=== PATIENT | male | born 1970 ===

== ENCOUNTER 2023-10-23 17:00 | Observation (INO) | payer OTHER, SELFPAY ==
--- NOTE | ~2023-10-23 | XR_ITS ---
EXAMINATION: CHEST 2 VIEWS CLINICAL INFORMATION: chest pain. COMPARISON: No recent pertinent prior studies are available for comparison. TECHNIQUE: PA and lateral views of the chest obtained. FINDINGS: The lungs are well expanded. No focal infiltrate, effusion, edema, or pneumothorax. Cardiac and mediastinal silhouettes are within normal limits for technique. No acute bony abnormality seen XR/XR chest 2V IMPRESSION: No evidence of acute disease
--- NOTE | 2023-10-23 17:03 | ECG_ITS ---
Test Reason : ZAPS IN HEART X 2 Blood Pressure : / mmHG Vent. Rate : 080 BPM Atrial Rate : 080 BPM P-R Int : 134 ms QRS Dur : 084 ms QT Int : 366 ms P-R-T Axes : 023 069 035 degrees QTc Int : 422 ms Normal sinus rhythm T wave abnormality, consider anterior ischemia Abnormal ECG No previous ECGs available Referred By: Jolynn Rodriguez Electronically Signed By:Kun Rosado
--- NOTE | 2023-10-23 17:19 | ED_ITS ---
HPI - General Adult General Chief complaint: Chest Pain Stated complaint: 'zaps' in heart x2 today Time Seen by Provider: 10/23/23 17:37 Source: patient Mode of arrival: ambulatory Limitations: no limitations History of Present Illness HPI narrative: 53 yo male denies PMH denies known cardiac disease here with c/o waking up at 630am with zapping chest pain L side that radiated to the arm. He denies other symptoms states it lasted about 30 minutes. He then went to [employer] around 930 and it happened again. He walks a lot at work and has not noted any pain. He has not had pain for many hours but decided to get it checked out. He has not had any chest pain since he was a heavy drinker back in 2002. He has no hx of CAD, no prior stress test, cardiac catheterization. Both his parents of heart attacks but his mom was in her 70s and his father was in his 90s. He is pain free now though he notes he has a poor appetite today and feels a little lightheaded. no recent ETOH or cocaine use MD complaint: chest pain Onset (ago): hour(s) (630am) Location: chest Radiation: other (L arm) Severity: moderate Quality: other ( zaps ) Pain Consistency: now resolved Relieving factors: none Exacerbating factors: none Associated symptoms: denies other symptoms Treatments prior to arrival: none Related Data Allergies Allergy/AdvReac Type Severity Reaction Status Date / Time loperamide [From Imodium A-D] Allergy Headache Verified 10/23/23 17:22 Review of Systems 2 Review of Systems: Constitutional : No Weight loss, No Fever, No Chills ENT/Mouth : No sore throat, No Rhinorrhea Eyes: No Eye Pain, No Swelling Cardiovascular : pos Chest Pain, no SOB, no Dyspnea on Exertion, No Orthopnea, No Edema, No Palpitations Respiratory : No Cough, No Sputum Gastrointestinal : no Nausea, No Vomiting, No Diarrhea, No abdominal Pain, No Hematochezia, No Melena Genitourinary : No Dysuria, No Urinary Frequency Musculoskeletal : No joint pain, No Myalgias, No Joint Swelling Skin : No Skin Lesions, No rash Neuro : No Weakness, No Numbness, pos Dizziness, No Headache Psych : No Anxiety/Panic, No Depression Heme/Lymph: No Bruising, No Lymphadenopathy Endocrine : No Polyuria, No Polydipsia All other systems reviewed and are negative [facility] Past Medical History Attestation statement: The following information was validated with the patient. Medical History Alcohol abuse, in remission Social History Social History (Updated 10/23/23 @ 17:53 by Soo Perkins DO) Patient Tobacco Use Status: Never used Tobacco Smoked in Last 30 Days: No Use of substances other than those prescribed or required for medical reasons: No Advance Directives: No Advance Directives Information Provided: No Physical Exam ED Vital Signs: Vital Signs - 24 hr 10/23/23 17:20 10/23/23 18:00 Temperature 97.8 F Pulse Rate 80 76 Respiratory Rate 16 16 Blood Pressure 127/71 120/79 Pulse Oximetry 99 96 Oxygen Delivery Method Room Air Room Air BMI result Body Mass Index 30.0 Appearance: Alert. Oriented X3. No acute distress. Eyes: Pupils equal, round and reactive to light. ENT: Pharynx normal. Neck: Normal inspection. Neck supple. CVS: Normal heart rate and rhythm. Pulses normal distal pulses intact and symmetric Respiratory: No respiratory distress. Breath sounds normal. Abdomen: Soft and nontender. Skin: Skin warm and dry. Normal skin color. Normal skin turgor. Extremities: No lower extremity edema. No calf ttp Neuro: Oriented X 3. No motor deficit. No sensory deficit. Course Course Course Narrative: RME performed by Lorena Diane PA-C. Patient is a 53 year old assigned male at presenting to the emergency department with chest pain. Patient states that he was woken up by zaps in his chest / around his heart. Patient states that he is also having left arm pain. Detailed physical exam and review of systems are deferred to the route returner. Labs, imaging, and swabs ordered. Charge nurse aware of patient and attempting to find a room for him. Medical Decision Making Medical Decision Making MDM Narrative: 53 yo male with prior alcohol abuse but has been abstinent for many years no drug use here with c/o zapping L sided chest pain down arm now with c/o some mild dizziness no chest pain no associated symptoms some heaviness in L arm - he has distal pulses intact and has no risk factors for VTE - doubt dissection doubt VTE. He has an abnormal EKG but symptoms are atypical though he has a POS fam hx. Will obtain trop x 1 given last episode of pain was at 930am. Will discuss with cardiology. Differential Diagnosis Differential Diagnoses: The differential diagnosis associated with the presentation includes atypical chest pain, ACS, doubt dissection distal pulses intact no hypoxia no tachycardia no signs of DVT doubt VTE Admission/Observation Consideration of admission/observation: Escalation of care including admission/observation considered admit for further management given abnormal stress test Consult Healthcare Provider Management of the patient was discussed with: Hospitalist and Patient Registration Representative (Alonzo admit for further workup - no heparin) Lab Data MDM Lab Attestation statement: I reviewed the patient's lab results. 10/23/23 17:31 10/23/23 17:31 Labs: Lab Results 10/23/23 Range/Units 17:31 WBC 8.8 (4.8-10.8) X10*3/uL RBC 5.39 (4.60-5.80) X10*6/uL Hgb 15.4 (14.0-18.0) g/dl Hct 45.7 (42.0-52.0) % MCV 84.8 (80.0-98.0) fL MCH 28.6 (27.0-33.0) pg MCHC 33.7 (31.0-36.0) g/dl RDW 12.7 (11.0-16.0) % Plt Count 270 (160-400) X10*3/uL MPV 9.9 (9.4-12.4) fL Immature Gran % (Auto) 0.7 H (0.0-0.4) % Neut % (Auto) 54.8 (45-73) % Lymph % (Auto) 36.2 (20-40) % [place] % (Auto) 6.9 (2-11) % Eos % (Auto) 0.9 (0-4) % Baso % (Auto) 0.5 (0-2) % Lymph # (Auto) 3.2 (1.2-4.9) X10*3/uL [place] # (Auto) 0.6 (0.1-1.2) X10*3/uL Eos # (Auto) 0.1 (0.0-0.4) X10*3/uL Baso # (Auto) 0.0 (0.0-0.2) X10*3/uL Abs Immat Gran (auto) 0.06 H (0.00-0.03) X10*3/uL Absolute Neuts (auto) 4.8 (2.0-8.3) x10*3/uL Absolute Nucleated RBC 0.000 (0.0-0.012) X10*3/uL Nucleated RBC % (auto) 0.0 (0.0-0.2) /100WBC PT 12.2 (11.1-13.3) SEC INR 1.0 (0.9-1.1) APTT 34.6 (26.0-36.4) SEC Sodium 141 (135-145) mmol/L Potassium 4.0 (3.3-5.1) mmol/L Chloride 104 (96-108) mmol/L Carbon Dioxide 27 (22-29) mmol/L Anion Gap 14 (12-20) BUN 14 (9-16) mg/dL Creatinine 0.95 (0.5-1.4) mg/dL Estim Creat Clear Calc 90.5 Estimated GFR > 60 Random Glucose 90 (60-115) mg/dL Calcium 9.6 (8.4-10.2) mg/dL Magnesium 1.9 (1.6-2.6) mg/dL Total Bilirubin 0.5 (0.0-1.0) mg/dL AST 23 (5-37) U/L ALT 24 (0-40) U/L Alkaline Phosphatase 78 (39-117) U/L Troponin I High Sens < 2.7 (<3.5-35.0) ng/L B-Natriuretic Peptide 11 (<100) pg/mL Total Protein 8.1 H (6.5-8.0) g/dL Albumin 4.5 (3.5-5.0) g/dL COVID-19 ([facility]) Negative (Negative) COVID-19 Clin Com See Note Influenza Type A ([facility]I) Negative (Negative) Influenza Type B ([facility]I) Negative (Negative) Influenza A & B Note See Note Independent Interpretation I performed an independent interpretation of an: EKG and Plain X-Ray (normal ) Interpretation: Rate: 80 Rhythm: NSR [place]: normal Normal P waves. Normal CECILY. Normal QRS complex. ST T wave : biphasic T waves in V3-V4, no MICHAEL has some q waves small in II and III qTC: 422 prior studies: no prior The study has been interpreted contemporaneously by me. EKG #2 Rate: 77 Rhythm: NSR [place]: normal Normal P waves. Normal CECILY. Normal QRS complex. ST T wave : no MICHAEL, biphasic t waves V3-V4, q waves II and III qTC: 425 prior studies: no prior no sig change The study has been interpreted contemporaneously by me. . Radiology Impression Discussion of test interpretation with radiology: I have reviewed the radiologist's reading. Discharge Plan Discharge Clinical Impression: Atypical chest pain, Abnormal EKG Patient Disposition: Admitted As Inpatient
[2023-10-23 17:20] VITALS: BP 127/71; PULSE 80; RESP 16; TEMP 36.6; O2SAT 99
[2023-10-23 17:37] LABS: MANUAL DIFF FLAG NO
[2023-10-23 17:39] LABS: Basophils Percent Auto 0.5 % (0-2); Eosinophils Absolute Auto 0.1 X10*3/uL (0.0-0.4); Eosinophils Percent Auto 0.9 % (0-4); Hematocrit 45.7 % (42.0-52.0); Hemoglobin 15.4 g/dl (14.0-18.0); Imm Gran Abs Auto 0.06 X10*3/uL (0.00-0.03); Imm Gran Pct Auto 0.7 % (0.0-0.4); Lymphocytes Absolute Auto 3.2 X10*3/uL (1.2-4.9); Lymphocytes Percent Auto 36.2 % (20-40); Mean Corpuscular HGB Conc 33.7 g/dl (31.0-36.0); Mean Corpuscular Hemoglobin 28.6 pg (27.0-33.0); Mean Corpuscular Volume 84.8 fL (80.0-98.0); Mean Platelet Volume 9.9 fL (9.4-12.4); Monocytes Absolute Auto 0.6 X10*3/uL (0.1-1.2); Monocytes Percent Auto 6.9 % (2-11); Neutrophils Absolute Auto 4.8 x10*3/uL (2.0-8.3); Neutrophils Percent Auto 54.8 % (45-73); Platelet Count 270 X10*3/uL (160-400); Red Blood Count 5.39 X10*6/uL (4.60-5.80); Red Cell Distribution Width 12.7 % (11.0-16.0); White Blood Count 8.8 X10*3/uL (4.8-10.8)
--- NOTE | 2023-10-23 17:42 | ECG_ITS ---
Test Reason : pain Blood Pressure : / mmHG Vent. Rate : 077 BPM Atrial Rate : 077 BPM P-R Int : 140 ms QRS Dur : 088 ms QT Int : 376 ms P-R-T Axes : 025 067 039 degrees QTc Int : 425 ms Normal sinus rhythm Nonspecific T wave abnormality Abnormal ECG When compared with ECG of 23-OCT-2023 17:12, No significant change was found Referred By: Jolynn Rodriguez Electronically Signed By:Kun Rosado
[2023-10-23 17:53] LABS: Alanine Aminotransferase 24 U/L (0-40); Albumin Level 4.5 g/dL (3.5-5.0); Alkaline Phosphatase 78 U/L (39-117); Anion Gap 14 (12-20); Aspartate Amino Transferase 23 U/L (5-37); Bilirubin Total 0.5 mg/dL (0.0-1.0); Blood Urea Nitrogen 14 mg/dL (9-16); Calcium 9.6 mg/dL (8.4-10.2); Carbon Dioxide 27 mmol/L (22-29); Chloride 104 mmol/L (96-108); Creatinine Clr Calc Pharmacy 90.5; Estimated Glomerular Filt Rate > 60; Glucose Random 90 mg/dL (60-115); Magnesium 1.9 mg/dL (1.6-2.6); Sodium 141 mmol/L (135-145); Total Protein 8.1 g/dL (6.5-8.0)
[2023-10-23 17:55] LABS: Prothrombin Time 12.2 SEC (11.1-13.3)
[2023-10-23 17:58] LABS: Partial Thromboplastin Time 34.6 SEC (26.0-36.4)
[2023-10-23 17:59] LABS: B Type Natriuretic Peptide 11 pg/mL (<100)
[2023-10-23 18:00] VITALS: BP 120/79; PULSE 74; PULSE 76; RESP 16; O2SAT 96
[2023-10-23 18:02] LABS: Troponin-I High Sensitivity < 2.7 ng/L (<3.5-35.0)
[2023-10-23 18:13] LABS: COVID-19 Test Negative (Negative); IDNOW Serial# 08D9AD1C
[2023-10-23 18:14] LABS: IDNOW Serial# 9DB6401D; Influenza A Negative (Negative); Influenza B2 Negative (Negative)
[2023-10-23] MEDS: Aspirin 81 MG TAB.CHEW 324 MG PO (19:25)
--- NOTE | 2023-10-23 19:33 | PC.NURSE ---
Patient is alert and oriented x3, VSS. Patient reports left sided chest pain that radiate s to left shoulder/arm/hand 02/08 at present, content developer in place, HR 79, NSR. Patient medicated with Aspirin 324 mg PO per NOV. Patient ambulates independently with a steady gait. Skin is dry, warm, intact. Call marquez within patient's reach.
[2023-10-23 19:36] LABS: Troponin-I High Sensitivity < 2.7 ng/L (<3.5-35.0)
[2023-10-23 20:13] LABS: Appearance Urine Clear; Color Urine Yellow; Glucose Urine UA Negative (Negative); Leukocyte Esterase Urine Negative (Negative); Nitrite Urine Negative (Negative); PH 6.5 (5.0-9.0); Specific Gravity - Urine 1.015 (1.005-1.025); Urine Blood Negative (Negative); Urine Ketones Negative (Negative); Urine Protein Negative (Neg-Trace)
[2023-10-23 20:18] LABS: Amphetamine Screen Urine Not Detected (Not Detect); Barbiturates, Urine Not Detected (Not Detect); Benzodiazepines Screen Urine Not Detected (Not Detect); Cannabinoid Screen Urine Not Detected (Not Detect); Cocaine Screen Urine Not Detected (Not Detect); Fentanyl, urine Not Detected (Not Detect); Opiate Screen Urine Not Detected (Not Detect); Phencyclidine Screen Urine Not Detected (Not Detect)
--- NOTE | 2023-10-23 20:18 | PHA.MEDREC ---
Pharmacy Consult ? Medication Reconciliation Pharmacy has completed the medication reconciliation.Patient is currently not on any medications. Maria Victoria roldan CPhT
--- NOTE | 2023-10-23 20:53 | P.HPHOSP_ITS ---
History of Present Illness Date of Service: 10/23/23 Attending physician on admission: Jolynn Rodriguez Chief Complaint: Chest pain Kedar Ramirez is a 53 years old man with no significant past medical history presented to the emergency department complaining of few episodes of chest pain. The 1st episode occurred today around 06:30 after he woke up. He localized the pain in the mid chest and described it as a sharp/needles sensation. It radiates to the left arm and said that his left arm hurts when he touches it. He denied any trauma to left arm or been lifting any heavy objects. This pain lasted for several minutes. Later in the morning he had another similar episode associated with lightheadedness. He did not take any medication at home. Denied any headache, loss of consciousness, palpitations, shortness of breath, cough, sweating, nausea or vomiting. He does not have history of coronary artery disease, hypertension, diabetes mellitus or hyperlipidemia. He does not take aspirin daily. He stated that he is dad of advanced age (90s) of heart problems. His mom of cirrhosis. He mentioned that in 2002 he experienced chest pain and underwent a stress test and was told it was normal. He denies tobacco smoking, alcohol abuse or illicit drug use. In the ED, found to have normal vital signs. Blood workup included CBC and CMP are unremarkable. Troponin is negative x2. Viral testing for COVID-19 the influenza is negative. Urine drug test is negative. CXR is negative. ECG showed Q-waves in lead II and III. ED Tx: Aspirin 325 mg p.o. x1. Review of Systems 2 Review of Systems: All 12 systems were reviewed and normal except as noted in HPI. [facility] Medical History Alcohol abuse, in remission Social History (Updated 10/23/23 @ 17:53 by Soo Perkins DO) Patient Tobacco Use Status: Never used Tobacco Smoked in Last 30 Days: No Use of substances other than those prescribed or required for medical reasons: No Advance Directives: No Advance Directives Information Provided: No Meds Allergies Allergy/AdvReac Type Severity Reaction Status Date / Time loperamide [From Imodium A-D] Allergy Headache Verified 10/23/23 17:22 Active Medications: Current Medications Acetaminophen (Acetaminophen 325 Mg Tablet) 650 mg PO Q6H PRN PRN Reason: Pain, Mild (Pain Scale 1-3) Aspirin (Aspirin 81 Mg Tab.Chew) 81 mg PO DAILY CHRISTIAN Sodium Chloride (0.9 % Sodium Chloride Flush 3 Ml Syringe) 3 ml IVFLUSH QSHIFT CHRISTIAN Home Medications Medication Instructions Recorded Confirmed Last Taken Type No Known Home Meds 10/23/23 10/23/23 Unknown History Physical Exam 2 Vital Signs and Narrative: Vital Signs: Last Vital Signs Temp 97.8 F 10/23/23 17:20 Pulse 76 10/23/23 18:00 Resp 16 10/23/23 18:00 BP 120/79 10/23/23 18:00 Pulse Ox 96 10/23/23 18:00 O2 Del Method Room Air 10/23/23 18:00 BMI result Body Mass Index 30.0 Constitutional - Awake and Alert, No apparent distress HEENT - normocephalic atraumatic. Cardiovascular - S1S2, RRR, No murmur. Respiratory - Normal lung expansion, Normal respiratory effort, No respiratory distress, CTA bilaterally Gastrointestinal - NT / ND; +BS; No rebound or guarding Extremities - no calf tenderness bilaterally, no swelling Musculoskeletal - Normal inspection, normal ROM. Left arm tenderness. Skin - Warm/Dry Neurological - Alert & oriented x3, Psychological - Appropriate affect. Results Labs 10/23/23 17:31 10/23/23 17:31 Labs: Laboratory Results - last 24 hr 10/23/23 10/23/23 17:31 20:02 MCV 84.8 MCH 28.6 MCHC 33.7 RDW 12.7 Plt Count 270 MPV 9.9 Immature Gran % (Auto) 0.7 H Neut % (Auto) 54.8 Lymph % (Auto) 36.2 [place] % (Auto) 6.9 Eos % (Auto) 0.9 Baso % (Auto) 0.5 Lymph # (Auto) 3.2 [place] # (Auto) 0.6 Eos # (Auto) 0.1 Baso # (Auto) 0.0 Abs Immat Gran (auto) 0.06 H Absolute Neuts (auto) 4.8 Absolute Nucleated RBC 0.000 Nucleated RBC % (auto) 0.0 PT 12.2 INR 1.0 APTT 34.6 Anion Gap 14 Estim Creat Clear Calc 90.5 Estimated GFR > 60 Random Glucose 90 Calcium 9.6 Magnesium 1.9 Total Bilirubin 0.5 AST 23 ALT 24 Alkaline Phosphatase 78 B-Natriuretic Peptide 11 Total Protein 8.1 H Albumin 4.5 Urine Color Yellow Urine Appearance Clear Urine pH 6.5 Ur Specific [place] 1.015 Urine Protein Negative Urine Glucose (UA) Negative Urine Ketones Negative Urine Blood Negative Urine Nitrite Negative Ur Leukocyte Esterase Negative Urine Opiates Screen Not Detected Urine Fentanyl Screen Not Detected Ur Barbiturates Screen Not Detected Ur Phencyclidine Scrn Not Detected Ur Amphetamines Screen Not Detected U Benzodiazepines Scrn Not Detected Urine Cocaine Screen Not Detected U Marijuana (THC) Screen Not Detected COVID-19 ([facility]) Negative COVID-19 Clin Com See Note Influenza Type A ([facility]I) Negative Influenza Type B ([facility]I) Negative Influenza A & B Note See Note Imaging Radiologist's Impressions: Impressions Chest X-Ray 10/23/23 17:34 IMPRESSION: No evidence of acute disease Assessment and Plan (1) Atypical chest pain: Status: Acute (2) Abnormal EKG: Status: Acute Plan Kedar Ramirez is a 53 years old man presents with: * Chest pain. Keep in observation under hospitalist service. Telemetry. Trend troponin. Check lipid panel and hemoglobin A1c. Obtain TTE and stress test. Aspirin 81 mg p.o. daily. Cardiology consult for further recommendations. * Left arm tenderness. Musculoskeletal pain? Related to above? Motrin as needed. DVT prophylaxis: SCDs. Code status: Full. Quality Stroke Does the patient have a stroke diagnosis?: No VTE Prior VTE?: No VTE Risk Level:: Medical - low VTE Device Contraindication: N/A - Device Ordered VTE Drug Contraindication: Treatment Not Indicated
[2023-10-23 22:23] VITALS: BP 104/70; PULSE 68; RESP 12; TEMP 36.7; O2SAT 96
[2023-10-23] MEDS: 0.9 % Sodium Chloride Flush 3 ML SYRINGE IVFLUSH (23:24)
[2023-10-24 00:11] VITALS: BP 111/69; PULSE 67; RESP 20; TEMP 36.5; O2SAT 95
[2023-10-24 01:52] LABS: Troponin-I High Sensitivity < 2.7 ng/L (<3.5-35.0)
[2023-10-24 02:20] VITALS: BP 113/77; PULSE 59; RESP 18; TEMP 36.5; O2SAT 97
[2023-10-24 03:46] VITALS: BP 117/73; PULSE 68; RESP 20; TEMP 36.4; O2SAT 97
--- NOTE | 2023-10-24 07:00 | CA_ITS ---
Transthoracic Echocardiogram Patient (Last, First, Middle): Kedar Ramirez, Gender: Male Date of : 1970 Age: 53 Procedure Date: 10/24/2023 Procedure Type: [place]ansthoracic [place] [facility] [place]: 165.1 cm Weight: 81.65 kg BSA: 1.89 m2 Heart Rate: bpm BP: 117 / 73 mmHg Ballroom Dance Instructor: SB Referring MD: Jolynn Rodriguez MD Symptoms: Chest pain, EKG changes Study Quality: Good ECG Rhythm: Sinus Conclusions: - Normal left ventricular size and systolic function. There is mildly increased left ventricular wall thickness. The visually estimated ejection fraction is between 60-65%. - There is no evidence of regional wall motion abnormalities. - E/E prime ratio is between 8 and 15 consistent with indeterminate filling pressures. - Normal right ventricular cavity size and systolic function. Findings Left Ventricle Normal left ventricular size and systolic function. There is mildly increased left ventricular wall thickness. The visually estimated ejection fraction is between 60-65%. There is no evidence of regional wall motion abnormalities. Abnormal diastolic function is noted. Spectral Doppler is indicative of a pseudonormal filling pattern. E/E prime ratio is between 8 and 15 consistent with indeterminate filling pressures. Right Ventricle Normal right ventricular cavity size and systolic function. Atria The left atrium is normal in size. Aortic Valve Normal aortic valve structure and function. There is no aortic valve stenosis. There is no aortic valve regurgitation. Mitral Valve The mitral valve appears normal. There is no mitral valve regurgitation. There is no mitral valve stenosis. Pulmonic Valve Normal pulmonic valve structure and function. There is no pulmonic valve regurgitation. Tricuspid Valve Normal tricuspid valve structure and function. There is trace tricuspid valve regurgitation. Normal right atrial pressure. There is no evidence of pulmonary hypertension. Great Vessels All visible segments of the aorta are normal in size. The visualized portions of the pulmonary artery and branches are normal. Venous The inferior vena cava is normal in size and collapses greater than 50% with inspiration. Pericardium/Pleural There is no evidence of pericardial effusion. Prior Study Comparison No prior study available for comparison. Measurements 2D Linear Measurements IVSd: 1.32 0.6-0.9/0.6-1.0 cm LVIDd: 4.52 3.9-5.3/4.2-5.9 cm LVIDd Index: 2.39 2.4-3.2/2.2-3.1 cm/m2 LVIDs: 2.37 2.0-3.6 cm LVPWd: 1.07 0.7-1.1 cm Ao Root: 3.50 2.1-3.5 cm LA Diam: 3.40 2.7-3.8/3.0-4.0 cm LAIDs Index: 1.80 1.5-2.3 cm/m2 LV Mass: 247.10 67-162/88-224 g LV Mass Index: 130.74 43-95/49-115 g/m2 LVOT Diam: 2.10 3.0+(-)1.3 cm 2D Systolic Function EF 4C: 69.50 >55% EF 2C: 65.30 >55% EF BiP: 69.20 >55% Mitral Valve MV Pk E: 0.85 MV PK A: 0.63 MV Decel Time: 201.00 E/A: 1.30 E'Lateral: 7.94 E'Medial: 6.42 E/E' Med: 13.30 E/E' Lat: 10.70 PHT: 59.00 MVA PHT: 3.73 Decel Larue: 4.24 Aortic Valve AoV Pk Jet: 1.32 AoV Mn Ejt: 0.88 AoV VTI: 0.27 AoV Pk Grad: 7.00 Aov Mn Grad: 4.00 CAR Cont.VTI: 2.94 LVOT LVOT Pk Jet: 1.08 LVOT Mn Jet: 0.69 LVOT VTI: 0.23 LVOT Pk Grad: 5.00 LVOT Mn Grad: 2.00 LVOT Diam: 2.10 LVOT Area: 3.46 Diastolic Function MV Pk E: 0.85 MV Pk A: 0.63 E/A: 1.30 E'Medial: 6.42 E/E' Med: 13.30 E' Laterial: 7.94 E/E' Lat: 10.70 Right Ventricle TAPSE (mm): 20.00 TVS' Jet: 11.00 Tricuspid Valve TR Pk Jet: 2.00 TR Pk Grad: 16.00 RA Press: 3.00 RVSP: 19.00 Great Vessels Aorta Ao Root-2D: 3.50 2.0-3.7 cm Ao Asc: 3.00 2.1-3.4 cm Ao Arch: 2.60 Pulmonary Veins Pulm Vein S/D 1.40 Pulmonary Valve PV Pk Jet: 0.94 Peak PV Grad: 4.00 Updated in Other Vendor System with Status of Final Kun Rosado MD electronically signed on 10/24/2023 10:31:35 AM with status of Final
[2023-10-24 07:13] LABS: Estimated Average Glucose 108 mg/dL; Hemoglobin A1c % 5.4 % (<6.0)
[2023-10-24 07:24] LABS: Alanine Aminotransferase 24 U/L (0-40); Alkaline Phosphatase 72 U/L (39-117); Anion Gap 11 (12-20); Aspartate Amino Transferase 22 U/L (5-37); Bilirubin Total 0.5 mg/dL (0.0-1.0); Blood Urea Nitrogen 16 mg/dL (9-16); Calcium 9.3 mg/dL (8.4-10.2); Carbon Dioxide 28 mmol/L (22-29); Chloride 104 mmol/L (96-108); Cholesterol 241 mg/dL (<200); Estimated Glomerular Filt Rate > 60; Glucose Random 99 mg/dL (60-115); HDL Cholesterol 41 mg/dL (>40); LDL Cholesterol Calculated 182 mg/dL (<100); Potassium 4.1 mmol/L (3.3-5.1); Sodium 139 mmol/L (135-145); Total Protein 7.3 g/dL (6.5-8.0); Triglycerides 93 mg/dL (<150)
[2023-10-24 07:27] LABS: Troponin-I High Sensitivity 2.8 ng/L (<3.5-35.0)
[2023-10-24 07:37] VITALS: BP 115/82; PULSE 60; RESP 18; TEMP 36.1; O2SAT 96
--- NOTE | 2023-10-24 09:00 | MHC.CM.PN ---
CM ATTEMPTED TO MEET W/PT HOWEVER PT W/CARDIOLOGY, CM TO REVISIT.
[2023-10-24] MEDS: Aspirin 81 MG TAB.CHEW PO (09:01)
[2023-10-24] MEDS: 0.9 % Sodium Chloride Flush 3 ML SYRINGE IVFLUSH (09:02)
--- NOTE | 2023-10-24 10:41 | P.CONCA_ITS ---
History of Present Illness History of Present Illness Date of Service: 10/24/23 Requesting physician: Nicci Lobo Chief complaint: Chest pain Narrative: 83-year-old gentleman presenting for chest pain. He woke up yesterday with stabbing sensation on the left side of his chest. This lasted for 1 minute and resolved. Later in the day he came had some stabbing sensation and some burning in the area. He said again the episode for us for 1 minute but then he had another episode and he became very anxious and decided come to the emergency department. In the ER he had workup done including troponins and his high sensitive troponin levels were less than 2.7 and he was checked 3 times. His EKG showed some biphasic T-waves in the precordial leads. These changes were not dynamic as the repeat EKG showed very similar changes. There is no old EKG to compare with. He was admitted for further assessment this morning he is denying any chest discomfort. Blood pressure has been stable. He got an echocardiogram performed which shows normal LV function with mild left ventricular hypertrophy. There is no regional wall motion abnormality or any evidence of pericardial effusion. [facility] Past Medical History Medical History Alcohol abuse, in remission Social History Social History (Updated 10/23/23 @ 17:53 by Soo Perkins DO) Household Members: Family Housing: Apartment Do you presently have visiting nurse or other home services: No Patient Tobacco Use Status: Never used Tobacco Meds Allergies Allergy/AdvReac Type Severity Reaction Status Date / Time loperamide [From Imodium A-D] Allergy Headache Verified 10/23/23 17:22 Active Medications: Current Medications Acetaminophen (Acetaminophen 325 Mg Tablet) 650 mg PO Q6H PRN PRN Reason: Pain, Mild (Pain Scale 1-3) Aspirin (Aspirin 81 Mg Tab.Chew) 81 mg PO DAILY REPLACED BY [facility] Last Admin: 10/24/23 09:01 Dose: 81 mg Ibuprofen (Ibuprofen 200 Mg Tablet) 200 mg PO Q4H PRN PRN Reason: Pain, Mild (Pain Scale 1-3) Sodium Chloride (0.9 % Sodium Chloride Flush 3 Ml Syringe) 3 ml IVFLUSH QSHIFT REPLACED BY [facility] Last Admin: 10/24/23 09:02 Dose: 3 ml Home Medications Medication Instructions Recorded Confirmed Last Taken Type No Known Home Meds 10/23/23 10/23/23 Unknown History Physical Exam 2 Vital Signs: Vital Signs: Last Vital Signs Temp 96.9 F 10/24/23 07:37 Pulse 60 10/24/23 07:37 Resp 18 10/24/23 07:37 BP 115/82 10/24/23 07:37 Pulse Ox 96 10/24/23 07:37 O2 Del Method Room Air 10/24/23 07:37 BMI result Body Mass Index 30.0 GENERAL APPEARANCE: in no acute distress, pleasant. NECK: no carotid bruit, no jugular venous distention. SKIN: no suspicious lesions, warm and dry. HEART: no murmurs, regular rate and rhythm. LUNGS: clear to auscultation bilaterally. ABDOMEN: soft, nontender. EXTREMITIES: no edema. PERIPHERAL PULSES: equal. NEUROLOGIC: No gross deficits, AAO X 3 Objective Labs and Meds 10/23/23 17:31 10/24/23 06:33 Lab results: Laboratory Results - last 24 hr 10/23/23 10/23/23 10/23/23 17:31 19:07 20:02 WBC 8.8 RBC 5.39 Hgb 15.4 Hct 45.7 MCV 84.8 MCH 28.6 MCHC 33.7 RDW 12.7 Plt Count 270 MPV 9.9 Immature Gran % (Auto) 0.7 H Neut % (Auto) 54.8 Lymph % (Auto) 36.2 Grady % (Auto) 6.9 Eos % (Auto) 0.9 Baso % (Auto) 0.5 Lymph # (Auto) 3.2 Grady # (Auto) 0.6 Eos # (Auto) 0.1 Baso # (Auto) 0.0 Abs Immat Gran (auto) 0.06 H Absolute Neuts (auto) 4.8 Absolute Nucleated RBC 0.000 Nucleated RBC % (auto) 0.0 PT 12.2 INR 1.0 APTT 34.6 Sodium 141 Potassium 4.0 Chloride 104 Carbon Dioxide 27 Anion Gap 14 BUN 14 Creatinine 0.95 Estim Creat Clear Calc 90.5 Estimated GFR > 60 Random Glucose 90 Estimat Average Glucose Hemoglobin A1c % Calcium 9.6 Magnesium 1.9 Total Bilirubin 0.5 AST 23 ALT 24 Alkaline Phosphatase 78 Troponin I High Sens < 2.7 < 2.7 B-Natriuretic Peptide 11 Total Protein 8.1 H Albumin 4.5 Triglycerides Cholesterol LDL Cholesterol, Calc HDL Cholesterol Urine Color Yellow Urine Appearance Clear Urine pH 6.5 Ur Specific [place] 1.015 Urine Protein Negative Urine Glucose (UA) Negative Urine Ketones Negative Urine Blood Negative Urine Nitrite Negative Ur Leukocyte Esterase Negative Urine Opiates Screen Not Detected Urine Fentanyl Screen Not Detected Ur Barbiturates Screen Not Detected Ur Phencyclidine Scrn Not Detected Ur Amphetamines Screen Not Detected U Benzodiazepines Scrn Not Detected Urine Cocaine Screen Not Detected U Marijuana (THC) Screen Not Detected COVID-19 (WARD) Negative COVID-19 Clin Com See Note Influenza Type A (MERI) Negative Influenza Type B (MERI) Negative Influenza A & B Note See Note 10/24/23 10/24/23 01:25 06:33 WBC RBC Hgb Hct MCV MCH MCHC RDW Plt Count MPV Immature Gran % (Auto) Neut % (Auto) Lymph % (Auto) Grady % (Auto) Eos % (Auto) Baso % (Auto) Lymph # (Auto) Grady # (Auto) Eos # (Auto) Baso # (Auto) Abs Immat Gran (auto) Absolute Neuts (auto) Absolute Nucleated RBC Nucleated RBC % (auto) PT INR APTT Sodium 139 Potassium 4.1 Chloride 104 Carbon Dioxide 28 Anion Gap 11 L BUN 16 Creatinine 0.86 Estim Creat Clear Calc 100.0 Estimated GFR > 60 Random Glucose 99 Estimat Average Glucose 108 Hemoglobin A1c % 5.4 Calcium 9.3 Magnesium Total Bilirubin 0.5 AST 22 ALT 24 Alkaline Phosphatase 72 Troponin I High Sens < 2.7 2.8 B-Natriuretic Peptide Total Protein 7.3 Albumin 4.0 Triglycerides 93 Cholesterol 241 H LDL Cholesterol, Calc 182 H HDL Cholesterol 41 Urine Color Urine Appearance Urine pH Ur Specific [place] Urine Protein Urine Glucose (UA) Urine Ketones Urine Blood Urine Nitrite Ur Leukocyte Esterase Urine Opiates Screen Urine Fentanyl Screen Ur Barbiturates Screen Ur Phencyclidine Scrn Ur Amphetamines Screen U Benzodiazepines Scrn Urine Cocaine Screen U Marijuana (THC) Screen COVID-19 (WARD) COVID-19 Clin Com Influenza Type A (MERI) Influenza Type B (MERI) Influenza A & B Note Imaging Radiologist's impression: Impressions Chest X-Ray 10/23/23 17:34 IMPRESSION: No evidence of acute disease Assessment and Plan (1) Abnormal EKG: Status: Acute (2) Atypical chest pain: Status: Acute Plan Pleasant 53 year gentleman presenting for chest discomfort. The chest pain is quite atypical. His EKG is abnormal with some biphasic T-waves in the precordial leads. These changes are not dynamic and did not change on repeat EKG. We will repeat it again this morning. Echocardiography is not showing any wall motion abnormalities. High sensitive troponin levels are negative. I will arrange a stress echocardiogram for him today. If stress is normal will discharge him back home. His LDL cholesterol is less 182 currently. His total cholesterol is 241. He should be on Lipitor 40 mg once a day. We will give further recommendation as the stress echocardiogram is performed. Thank you for allowing me to participate in the care of your patient. Please feel free to contact me if you have any questions. Procedures Date of Service Date of Service: 10/24/23
[2023-10-24 11:05] VITALS: BP 121/75; PULSE 66; RESP 18; TEMP 36.3; O2SAT 97
--- NOTE | 2023-10-24 11:30 | CA_ITS ---
Acquisition Time: 2023-10-24 11:26:36 Total Exercise Time: 00:10:18 Test Indications: Chest Pain Medications: ASA Protocol: KASSANDRA Max HR: 169 BPM 100% of Pred: 169 BPM Max BP: 134/070 mmHG Max Work Load: 12.2 METS Exercise stress test exercise 10 min 18 sec of Kassandra protocol achieving 100% MPHR, with mild SOB, no chest discomfort, without arrhythmias, with normotensive repsonse to exercise, withV3-V6 horizontal depression, scooping 2,3 avF. Echo images obtained by tech at rest and immediately post peak exercise. Definity contrast used, Test reviewed with Dr Rosado. Referred By: Fela Pike Overread By: Fela Pike
[2023-10-24 15:31] VITALS: BP 111/66; PULSE 71; RESP 18; TEMP 36.6; O2SAT 95
--- NOTE | 2023-10-24 16:44 | HO.PM.IMPN ---
Subjective Subjective Date of Service: 10/24/23 Physical Exam Vital Signs: Vital Signs: Last Vital Signs Temp 97.8 F 10/24/23 15:31 Pulse 71 10/24/23 15:31 Resp 18 10/24/23 15:31 BP 111/66 10/24/23 15:31 Pulse Ox 95 10/24/23 15:31 O2 Del Method Room Air 10/24/23 15:31 BMI result Body Mass Index 30.0 Objective Data Active Medications Acetaminophen (Acetaminophen 325 Mg Tablet) 650 mg PO Q6H PRN PRN Reason: Pain, Mild (Pain Scale 1-3) Aspirin (Aspirin 81 Mg Tab.Chew) 81 mg PO DAILY [facility] Last Admin: 10/24/23 09:01 Dose: 81 mg Documented By: WINNIE Ibuprofen (Ibuprofen 200 Mg Tablet) 200 mg PO Q4H PRN PRN Reason: Pain, Mild (Pain Scale 1-3) Sodium Chloride (0.9 % Sodium Chloride Flush 3 Ml Syringe) 3 ml IVFLUSH QSHIFT [facility] Last Admin: 10/24/23 09:02 Dose: 3 ml Documented By: WINNIE Labs 10/23/23 17:31 10/24/23 06:33 Labs: Laboratory Results - last 24 hr 10/23/23 10/23/23 10/24/23 17:31 20:02 06:33 MCV 84.8 MCH 28.6 MCHC 33.7 RDW 12.7 Plt Count 270 MPV 9.9 Immature Gran % (Auto) 0.7 H Neut % (Auto) 54.8 Lymph % (Auto) 36.2 Russell % (Auto) 6.9 Eos % (Auto) 0.9 Baso % (Auto) 0.5 Lymph # (Auto) 3.2 Russell # (Auto) 0.6 Eos # (Auto) 0.1 Baso # (Auto) 0.0 Abs Immat Gran (auto) 0.06 H Absolute Neuts (auto) 4.8 Absolute Nucleated RBC 0.000 Nucleated RBC % (auto) 0.0 PT 12.2 INR 1.0 APTT 34.6 Anion Gap 14 11 L Estim Creat Clear Calc 90.5 100.0 Estimated GFR > 60 > 60 Random Glucose 90 99 Estimat Average Glucose 108 Hemoglobin A1c % 5.4 Calcium 9.6 9.3 Magnesium 1.9 Total Bilirubin 0.5 0.5 AST 23 22 ALT 24 24 Alkaline Phosphatase 78 72 B-Natriuretic Peptide 11 Total Protein 8.1 H 7.3 Albumin 4.5 4.0 Triglycerides 93 Cholesterol 241 H LDL Cholesterol, Calc 182 H HDL Cholesterol 41 Urine Color Yellow Urine Appearance Clear Urine pH 6.5 Ur Specific [place] 1.015 Urine Protein Negative Urine Glucose (UA) Negative Urine Ketones Negative Urine Blood Negative Urine Nitrite Negative Ur Leukocyte Esterase Negative Urine Opiates Screen Not Detected Urine Fentanyl Screen Not Detected Ur Barbiturates Screen Not Detected Ur Phencyclidine Scrn Not Detected Ur Amphetamines Screen Not Detected U Benzodiazepines Scrn Not Detected Urine Cocaine Screen Not Detected U Marijuana (THC) Screen Not Detected COVID-19 (WARD) Negative COVID-19 Clin Com See Note Influenza Type A (MERI) Negative Influenza Type B (MERI) Negative Influenza A & B Note See Note Quality Stroke Does the patient have a stroke diagnosis?: No VTE Prior VTE?: No VTE Risk Level:: Medical - low VTE Device Contraindication: N/A - Device Ordered VTE Drug Contraindication: Treatment Not Indicated
--- NOTE | 2023-10-24 16:55 | PM.DS ---
DS: Providers Provider Date of Service: 10/24/23 Date of admission: 10/23/23 20:10 Date of discharge: 10/24/23 Primary care physician: Dwain Lagunas MD Consults: 10/23/23 19:20 Consult to Cardiology Stat Consulting Provider: [facility] [place] [facility] Reason for consultation: abnormal ECG, chest pain Has provider been notified: Yes 10/23/23 20:15 Consult to Cardiology Routine Consulting Provider: [facility] [place] [facility] Reason for consultation: Chest pain Has provider been notified: Yes DS: Diagnosis Discharge Diagnosis (1) Abnormal EKG: Status: Acute (2) Atypical chest pain: Status: Acute DS: Summary Hospital Course Hospital Course: 53 years old man with no significant past medical history presented to the emergency department complaining of few episodes of chest pain. The 1st episode occurred today around 06:30 after he woke up. He localized the pain in the mid chest and described it as a sharp/needles sensation. It radiates to the left arm and said that his left arm hurts when he touches it. He denied any trauma to left arm or been lifting any heavy objects. This pain lasted for several minutes. Later in the morning he had another similar episode associated with lightheadedness. He did not take any medication at home. Denied any headache, loss of consciousness, palpitations, shortness of breath, cough, sweating, nausea or vomiting. He does not have history of coronary artery disease, hypertension, diabetes mellitus or hyperlipidemia. He does not take aspirin daily. He stated that he is dad of advanced age (90s) of heart problems. His mom of cirrhosis. He mentioned that in 2002 he experienced chest pain and underwent a stress test and was told it was normal. He denies tobacco smoking, alcohol abuse or illicit drug use. In the ED, found to have normal vital signs. Blood workup included CBC and CMP are unremarkable. Troponin is negative x2. Viral testing for COVID-19 the influenza is negative. Urine drug test is negative. CXR is negative. ECG showed Q-waves in lead II and III. Hospital course: Patient came with chest pain seems to be atypical: Possibly mild musculocutaneous: Troponin flat, echo:Echo images reviewed at rest and after stress.,Normal LVEF with no regional wall motion abnormalities at rest.,Post stress, LVEF augments appropriately and LV cavity is smaller in size. Has HLP: added atorvastatin. follow up with lft outpatient with pcp. Patient will be going home, follow-up with PCP. plan: HLP: added atorvastatin. follow up with lft outpatient with pcp. Above management discussed with the patient detail length he understand in agreement the above plan. Time Attestation Discharge coordination time: Greater than 30 minutes Quality: Safe Use of Opioids Does Pt have an Active Cancer Diagnosis on the Problem List?: No Quality: Stroke Does the patient have a stroke diagnosis?: No Physical Exam Vital Signs: Vital Signs: Last Vital Signs Temp 97.8 F 10/24/23 15:31 Pulse 71 10/24/23 15:31 Resp 18 10/24/23 15:31 BP 111/66 10/24/23 15:31 Pulse Ox 95 10/24/23 15:31 O2 Del Method Room Air 10/24/23 15:31 BMI result Body Mass Index 30.0 Appearance: Alert.? Oriented X3.? cvs: rrr, [id number] , no murmur res: clear to auscultation ,no rhonchii or wheezing abd: no rebound or guarding ,nt, bs present. ext pulses present , no cyanosis. neuro: axo3 , nonfocal. DS: Data Data Completed and Pending Labs on day of discharge: Laboratory Results - last 24 hr 10/23/23 10/23/23 10/23/23 17:31 19:07 20:02 WBC 8.8 RBC 5.39 Hgb 15.4 Hct 45.7 MCV 84.8 MCH 28.6 MCHC 33.7 RDW 12.7 Plt Count 270 MPV 9.9 Immature Gran % (Auto) 0.7 H Neut % (Auto) 54.8 Lymph % (Auto) 36.2 Clarke % (Auto) 6.9 Eos % (Auto) 0.9 Baso % (Auto) 0.5 Lymph # (Auto) 3.2 Clarke # (Auto) 0.6 Eos # (Auto) 0.1 Baso # (Auto) 0.0 Abs Immat Gran (auto) 0.06 H Absolute Neuts (auto) 4.8 Absolute Nucleated RBC 0.000 Nucleated RBC % (auto) 0.0 PT 12.2 INR 1.0 APTT 34.6 Sodium 141 Potassium 4.0 Chloride 104 Carbon Dioxide 27 Anion Gap 14 BUN 14 Creatinine 0.95 Estim Creat Clear Calc 90.5 Estimated GFR > 60 Random Glucose 90 Estimat Average Glucose Hemoglobin A1c % Calcium 9.6 Magnesium 1.9 Total Bilirubin 0.5 AST 23 ALT 24 Alkaline Phosphatase 78 Troponin I High Sens < 2.7 < 2.7 B-Natriuretic Peptide 11 Total Protein 8.1 H Albumin 4.5 Triglycerides Cholesterol LDL Cholesterol, Calc HDL Cholesterol Urine Color Yellow Urine Appearance Clear Urine pH 6.5 Ur Specific [place] 1.015 Urine Protein Negative Urine Glucose (UA) Negative Urine Ketones Negative Urine Blood Negative Urine Nitrite Negative Ur Leukocyte Esterase Negative Urine Opiates Screen Not Detected Urine Fentanyl Screen Not Detected Ur Barbiturates Screen Not Detected Ur Phencyclidine Scrn Not Detected Ur Amphetamines Screen Not Detected U Benzodiazepines Scrn Not Detected Urine Cocaine Screen Not Detected U Marijuana (THC) Screen Not Detected COVID-19 (WARD) Negative COVID-19 Clin Com See Note Influenza Type A (MERI) Negative Influenza Type B (MERI) Negative Influenza A & B Note See Note 10/24/23 10/24/23 01:25 06:33 WBC RBC Hgb Hct MCV MCH MCHC RDW Plt Count MPV Immature Gran % (Auto) Neut % (Auto) Lymph % (Auto) Clarke % (Auto) Eos % (Auto) Baso % (Auto) Lymph # (Auto) Clarke # (Auto) Eos # (Auto) Baso # (Auto) Abs Immat Gran (auto) Absolute Neuts (auto) Absolute Nucleated RBC Nucleated RBC % (auto) PT INR APTT Sodium 139 Potassium 4.1 Chloride 104 Carbon Dioxide 28 Anion Gap 11 L BUN 16 Creatinine 0.86 Estim Creat Clear Calc 100.0 Estimated GFR > 60 Random Glucose 99 Estimat Average Glucose 108 Hemoglobin A1c % 5.4 Calcium 9.3 Magnesium Total Bilirubin 0.5 AST 22 ALT 24 Alkaline Phosphatase 72 Troponin I High Sens < 2.7 2.8 B-Natriuretic Peptide Total Protein 7.3 Albumin 4.0 Triglycerides 93 Cholesterol 241 H LDL Cholesterol, Calc 182 H HDL Cholesterol 41 Urine Color Urine Appearance Urine pH Ur Specific [place] Urine Protein Urine Glucose (UA) Urine Ketones Urine Blood Urine Nitrite Ur Leukocyte Esterase Urine Opiates Screen Urine Fentanyl Screen Ur Barbiturates Screen Ur Phencyclidine Scrn Ur Amphetamines Screen U Benzodiazepines Scrn Urine Cocaine Screen U Marijuana (THC) Screen COVID-19 (WARD) COVID-19 Clin Com Influenza Type A (MERI) Influenza Type B (MERI) Influenza A & B Note Imaging Chest x-ray: Radiologist's impression: ITS Impressions Chest X-Ray 10/23/23 17:34 IMPRESSION: No evidence of acute disease Discharge Plan Discharge Anticipated Discharge Date/Time: 10/24/23 16:46 Patient Disposition: Home, Self-Care Discharge Diagnosis: atypical chest pain,hypercholestermia Referrals: Dwain Lagunas MD [Primary Care Provider] - 1 Week Discharge Medications: New atorvastatin 20 mg Tablet 20 mg PO DAILY Qty: 30 0RF Discharge Orders: Discharge Order (Routine); Ordered 10/24/23 Ordered By: Nicci Lobo Diet: Low fat, low cholesterol Activity on Discharge: As tolerated Stand Alone Forms: Patient Portal Discharge page Care Plan Goals: Patient came with chest pain seems to be atypical: Possibly mild musculocutaneous: Troponin flat, echo:Echo images reviewed at rest and after stress.,Normal LVEF with no regional wall motion abnormalities at rest.,Post stress, LVEF augments appropriately and LV cavity is smaller in size. Has HLP: added atorvastatin. follow up with lft outpatient with pcp. Patient will be going home, follow-up with PCP. Health Concerns: As above. Plan of Treatment: As above. Assessment: As above. Patient Instructions: Atorvastatin (By mouth)
[2023-10-24] MEDS: Atorvastatin Calcium 20 MG TABLET PO (17:15)
== END 2023-10-24 18:09 | disposition home or self-care (01) ==
LOC: HO.ED 18:56 → HO.EDOVER 20:19 → HO.IMC 10-24 00:37
PROVIDERS: Physician Assistant Medical; Admitting Provider Internal Medicine; Emergency Provider Emergency Medicine; PCP Internal Medicine; Visit Provider Internal Medicine
DX: R07.9 Chest pain, unspecified (principal); R94.31 Abnormal electrocardiogram [ECG] [EKG]; E78.00 Pure hypercholesterolemia, unspecified; Z11.52 Encounter for screening for COVID-19
CPT/HCPCS: 36415; 71046; 80053; 80061; 80307; 81003; 83036; 83735; 83880; 84484; 85025; 85610; 85730; 87502; 87635; 93005; 93306; 93350; 99222; 99285; Q9957

== ENCOUNTER 2023-10-23 20:10 | Outpatient (BNV) | payer OTHER, SELFPAY | END 2023-10-24 07:00 | PROVIDERS: Admitting Provider Internal Medicine; Emergency Provider Emergency Medicine; Visit Provider Internal Medicine Cardiovascular Disease | DX: R06.02 Shortness of breath (principal); R07.89 Other chest pain; R94.31 Abnormal electrocardiogram [ECG] [EKG] | CPT/HCPCS: 93016; 93018; 93350; 93352 ==

== ENCOUNTER → 2023-10-23 20:10 | Outpatient (BNV) | payer OTHER, SELFPAY | PROVIDERS: Admitting Provider Internal Medicine; Emergency Provider Emergency Medicine; Visit Provider Internal Medicine | DX: R07.89 Other chest pain (principal); R94.31 Abnormal electrocardiogram [ECG] [EKG] | CPT/HCPCS: 99222; 99239 ==

== ENCOUNTER → 2023-10-23 20:10 | Outpatient (BNV) | payer OTHER, SELFPAY | PROVIDERS: Admitting Provider Internal Medicine; Emergency Provider Emergency Medicine; Visit Provider Internal Medicine Cardiovascular Disease | DX: R94.31 Abnormal electrocardiogram [ECG] [EKG] (principal); R07.89 Other chest pain | CPT/HCPCS: 93010; 99223 ==

== ENCOUNTER 2023-11-01 15:03 | Outpatient (AMB) | payer OTHER, SELFPAY ==
--- NOTE | 2023-11-01 15:06 | MHC.OFFVIS ---
Intake Vital Signs 11/01/23 15:07 Height 5 ft 5 in Weight 187 lb 13.341 oz BMI 31.3 BP 110/70 Blood Pressure Location Lt brachial Position Sitting Pulse 80 Pulse Source Pulse Oximeter Intake Visit Reasons: f/up [facility] Intake Note: pt its in the of for an [facility] f/up, pt states that he its feeling much better today. 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 He reports he has been doing well with no chest pains or shortness of breath. He has improved his diet. He had a stress echo when he was in the hospital which showed normal LVEF with no wall motion abnormalities at rest and LVEF augmented appropriately. No post stress RWMA. He does report he has been having some muscle and joint pains. [facility] Medical History Alcohol abuse, in remission Social History Household Members: Family Housing: Apartment Do you presently have visiting nurse or other home services: No Patient Tobacco Use Status: Never used Tobacco Review of Systems Const Denies chills, Denies fatigue, Denies fever(s), Denies frequent falls, Denies weakness, Denies weight gain and Denies weight loss ENT Denies dizziness Card Denies chest pain, Denies leg edema, Denies lightheadedness, Denies palpitations, Denies dyspnea and Denies dyspnea on exertion Resp Denies cough, Denies dyspnea and Denies dyspnea on exertion GI Denies hematochezia Musc Denies abnormal gait, Denies muscle weakness, Denies numbness, Denies radiating pain into limb and Denies tingling Neuro Denies abnormal gait, Denies dizziness, Denies frequent falls, Denies numbness, Denies tingling and Denies weakness Endo Denies fatigue and Denies palpitations Physical Exam Vital Signs: Last Vital Signs Pulse 80 11/01/23 15:07 BP 110/70 11/01/23 15:07 BMI result Body Mass Index 31.3 Const General: healthy appearing and no acute distress Orientation/consciousness: patient oriented x3 HEENT Head: Yes normal to inspection Eyes General: appearance normal, both eyes and all related structures Neck Neck: Yes normal visual inspection Chest Chest palpation & inspection: normal inspection of the chest Resp Effort & Inspection: normal respiratory effort Auscultation: clear to auscultation bilaterally Cardio Jugular venous distension: no JVD Palpation: normal PMI Rate: regular rate Rhythm: regular rhythm Heart sounds: S1 normal heart sound present, S2 normal heart sound present, no click, no gallops, no murmurs and no rubs GI Inspection: Yes normal to inspection Palpation (GI): Soft to palpation Skin General skin exam: no rashes or lesions noted Neuro General: patient oriented x3 Extrem General: Yes normal to inspection Psych Appearance: grossly normal Assessment & Plan Assessment & Plan (1) Hypercholesteremia: Code(s): E78.00 - Pure hypercholesterolemia, unspecified (2) Atypical chest pain: Code(s): R07.89 - Other chest pain Plan Report any new or worsening symptoms. Will have him hold his liptor for a few days and reassess myagias to see if any improvement. Will recheck lipid panel in 3 months. ED care for any concering symptoms. Stress echo normal. Continue heart healthy diet and exercise as tolerated. Orders: Orders Basic Metabolic Panel 3 Months E78.00 - Pure hypercholesterolemia, unspecified Lipid Panel 3 Months E78.00 - Pure hypercholesterolemia, unspecified Coding Level of Care Code Est Pt Level 3 (06721) Diagnoses Hypercholesteremia E78.00 Atypical chest pain R07.89
[2023-11-01 15:07] VITALS: BP 110/70; PULSE 80; BMI 31.3
== END 2023-11-01 15:37 | disposition home or self-care (01) ==
PROVIDERS: PCP Internal Medicine; Visit Provider Nurse Practitioner
DX: E78.00 Pure hypercholesterolemia, unspecified (principal); R07.89 Other chest pain
CPT/HCPCS: 99213

== ENCOUNTER → 2023-11-01 15:03 | Outpatient (BNVA) | payer OTHER, SELFPAY | PROVIDERS: PCP Internal Medicine; Visit Provider Nurse Practitioner | DX: R07.89 Other chest pain (principal); E78.00 Pure hypercholesterolemia, unspecified | CPT/HCPCS: 99212 ==

== ENCOUNTER 2024-05-08 13:46 | Outpatient (AMB) | payer OTHER, SELFPAY ==
[2024-05-08 13:48] VITALS: BP 120/64; PULSE 66; BMI 30.3
--- NOTE | 2024-05-08 13:48 | A.OFFVIS_ITS ---
Vital Signs 05/08/24 13:48 Height 5 ft 5 in Weight 181 lb 14.102 oz BMI 30.3 BP 120/64 Blood Pressure Location Lt brachial Position Sitting Pulse 66 Pulse Source Pulse Oximeter Intake Visit Reasons: 6 mth fu Intake Note: 6 mth f/up Appointment Coordinator Required: No Accompanied by: Self / Same As Patient Allergies loperamide [From Imodium A-D] Allergy (Verified 11/01/23 15:22) Headache atorvastatin Adverse Reaction (Intermediate, Verified 11/10/23 13:41) joint and muscle pain Medication List - Last Reconciled 05/08/24 by Kun Rosado MD rosuvastatin 10 mg PO DAILY HPI Comments Details: [age] year gentleman who is here for follow-up. He was seen in the hospital when he presented with chest pain and underwent stress echocardiogram which was normal at good functional capacity. He was noticed to have elevated LDL of 182 and has been on Crestor 10 mg daily. He recently had COVID-19 infection and since then has been experiencing fatigue and muscle aches and pains. Previously also had some trouble with the atorvastatin with joint pains and muscle pains which is unusual for statins to get joint pains. On 10 mg rosuvastatin he has been stable. No chest discomfort shortness of breath. [facility] Medical History Alcohol abuse, in remission Social History Household Members: Family Housing: Apartment Do you presently have visiting nurse or other home services: No Patient Tobacco Use Status: Never used Tobacco Review of Systems Const Denies chills, Denies fatigue, Denies fever(s), Denies frequent falls, Denies weakness, Denies weight gain and Denies weight loss ENT Denies dizziness Card Denies chest pain, Denies leg edema, Denies lightheadedness, Denies palpitations, Denies dyspnea and Denies dyspnea on exertion Resp Denies cough, Denies dyspnea and Denies dyspnea on exertion GI Denies hematochezia Musc Denies abnormal gait, Denies muscle weakness, Denies numbness, Denies radiating pain into limb and Denies tingling Neuro Denies abnormal gait, Denies dizziness, Denies frequent falls, Denies numbness, Denies tingling and Denies weakness Endo Denies fatigue and Denies palpitations Physical Exam Vital Signs: Last Vital Signs Pulse 66 05/08/24 13:48 BP 120/64 05/08/24 13:48 BMI result Body Mass Index 30.3 GENERAL APPEARANCE: in no acute distress, pleasant. NECK: no carotid bruit, no jugular venous distention. SKIN: no suspicious lesions, warm and dry. HEART: no murmurs, regular rate and rhythm. LUNGS: clear to auscultation bilaterally. ABDOMEN: soft, nontender. EXTREMITIES: no edema. PERIPHERAL PULSES: equal. NEUROLOGIC: No gross deficits, AAO X 3 Assessment & Plan Assessment & Plan (1) Hypercholesteremia: Code(s): E78.00 - Pure hypercholesterolemia, unspecified Category: Medical Plan Pleasant 53 gentleman who was seen in the emergency department for abnormal ECG with T-wave abnormalities with chest discomfort. He underwent exercise stress test after that which was normal. He has not been getting any further chest discomfort. He has elevated cholesterol with LDL of 182. He is currently taking Crestor 10 mg. I have advised him to increase the Crestor to 20 mg daily. If he tolerates that dose then over the next few weeks he should go to 40 mg daily. If he can not tolerate it then I think we continue at 20 mg and add ezetimibe. Once he is on a steady dose for 4-6 weeks then we will repeat fasting lipid panel. He will see us back in few months. Thank you for allowing me to participate in the care of your patient. Please feel free to contact me if you have any questions. Orders: Orders Lipid Panel Today E78.00 - Pure hypercholesterolemia, unspecified Medications: New rosuvastatin 20 mg PO DAILY 90 tabs 3RF Discontinued rosuvastatin Discontinued Reason: None 10 mg PO DAILY 90 tabs 1RF Coding Level of Care Code Est Pt Level 4 (11196) Diagnoses Hypercholesteremia E78.00
== END 2024-05-08 14:23 | disposition home or self-care (01) ==
PROVIDERS: PCP Internal Medicine; Visit Provider Internal Medicine Cardiovascular Disease
DX: E78.00 Pure hypercholesterolemia, unspecified (principal)
CPT/HCPCS: 99214

== ENCOUNTER → 2024-05-08 13:46 | Outpatient (BNVA) | payer OTHER, SELFPAY | PROVIDERS: PCP Internal Medicine; Visit Provider Internal Medicine Cardiovascular Disease | DX: E78.00 Pure hypercholesterolemia, unspecified (principal) | CPT/HCPCS: 99212 ==

== ENCOUNTER 2024-11-27 16:09 | Outpatient (REF) | payer OTHER, SELFPAY ==
--- OUTSIDE RECORDS SUMMARY | 2024-11-27 19:36 | XMS_ITS | Data Portability ---
Author Organization [facility], , [facility] Address [address] [place] [address] Care Team Providers Care Revenue Integrity Analyst Name Role Phone [facility] Business Liaison Officer [phone] VENKAT RICH Primary Care Provider Assessment Encounter Date Assessment Date Assessment LastModified by Organization Details LastModified Time 08/08/2023 08/08/2023 Patient has had a cough and upper respiratory congestion for about 2 weeks. He denies any fever. Initially the cough was productive of yellowish sputum, and now it is mostly white. He was driving home one evening when he had a coughing fit, and feels that he may have even passed out briefly. This has not reoccurred. Is wondering how to manage this given the duration of symptoms. He continues to work. Lhjixutur-epw-jfc appearing and in no acute distress. Vital signs noted. TMs are tsai with partial cerumen obstruction on the right. No sinus tenderness. Oropharynx is minimally red without exudate or petechiae. No significant lymphadenopathy. Lungs are clear. Cardiac exam-regular rate and rhythm. Heart rate 70 bpm. Assessment-symptom s are most consistent with an acute bronchitis that appears to be evolving. There are no signs of a bacterial infection. I reassured the patient that it was most likely that he would feel better within a week, and that he should contact us if symptoms persist. He was still concerned about the severity of the infection, and we agreed that he would check lab work, and assuming there are no worrisome signs, he will try to wait this out another week and follow-up if not improving in 1 week. If labs are abnormal, I would strongly consider a chest x-ray. I will notify him of lab results by phone. He is comfortable with this plan. Also of note, he has had back pain from codeine cough syrup, so specifically wants to avoid that. [email or web address] Not available 08/08/2023 14:59:26 04/17/2024 04/17/2024 Patient agreed t o this visit via a secure telehealth platform. Patient understands this is a scheduled visit and the usual procedures with regard to billing and confidentiality apply. Patient was notified that the provider location is [facility] Patient location: home During the visit the patient? s medical history and medical record were reviewed. The patient was notified to call our office for worsening or urgent symptoms. [email or web address] Not available 04/17/2024 10:05:21 09/03/2024 09/03/2024 After a discussi on of treatment options, which included consideration of best practices and patient preferences, the following treatment plan and objectives were adopted: [email or web address] Not available 09/03/2024 09:22:47 Plan of Treatment Reminders Order Date Submit Date Provider Last Modified By Organization Details Last Modified Time Details Appointments None recorded . Lab rapid flu (A+B) 2023 024 [facility], [address] [place] [address], [address], 4 14:32:01 rapid SARS CoV 2 Ag, QL IA, respirat ory specimen 2022 023 [facility], [address] [place] [address], [address], 3 11:58:11 rapid flu (A+B) 2022 023 [facility], [address] [place], [address], 3 11:56:12 CBC w/ auto diff 2022 023 [facility], [address] [place], [address], 3 14:19:14 C reactive protein, QN, serum or plasma 2022 023 [facility], [address] [place], [address], 3 15:39:30 ESR (erythro cyte sediment ation rate), blood 2022 023 [facility], [address] [place], [address], 3 15:39:44 Referral None recorded . Procedures None recorded . Surgeries None recorded . Imaging XR, chest - ? pneumoni a, cough. fever, crackles at bases 2022 023 [id number] [facility] [address], [place], [address], 3 17:17:46 Medication Orders codeine 10 mg-guaif enesin 100 mg/5 mL oral liquid 2023 024 [facility], [address] [place] [address], [address], 4 09:24:43 Flonase Allergy Relief 50 mcg/actu ation nasal spray,jimenez spension 2023 024 [facility], [address] [place] [address], [address], 4 09:24:42 albutero l sulfate HFA 90 mcg/actu ation aerosol inhaler 2023 024 [facility], [address] [place], [address], 4 09:07:02 codeine 10 mg-guaif enesin 100 mg/5 mL oral liquid 2023 024 [email or web address] [address] [place], [address], 4 09:49:48 benzonat ate 200 mg capsule 2022 023 [facility], [address] [facility], [place], [address], 21:19:09 Patient TargetsNo targets recorded. Patient InstructionsNo instructions recorded. Reason for Referral None Reported. Results Created Date Observation Date Name Description Value Unit Range Abnormal Flag Note LastModifiedBy Organization Detail LastModifiedTime 08/09/2008/09/2023 CBC WBC 6.10 K/? ? ?L 4.23-9 .07 Not Available [address], [address], 08/09/2023 12:37:15 08/09/2008/09/2023 CBC RBC 5.23 M/? ? ?L 4.63-6 .08 Not Available [address], [address], 08/09/2023 12:37:15 08/09/2008/09/2023 CBC HGB 14.8 g/dL 13.7-1 7.5 Not Available [address], [address], 08/09/2023 12:37:15 08/09/2008/09/2023 CBC HCT 45.7 % 40.1-5 1.0 Not Available [address], [address], 08/09/2023 12:37:15 08/09/2008/09/2023 CBC MCV 87.4 fL 79.0-9 2.2 Not Available [address], [address], 08/09/2023 12:37:15 08/09/2008/09/2023 CBC MCH 28.3 pg 25.7-3 2.2 Not Available [address], [address], 08/09/2023 12:37:15 08/09/20 23 08/09/2023 CBC MCHC 32.4 g/dL 32.3-3 6.5 Not Available [address], [address], 08/09/2023 12:37:15 08/09/20 23 08/09/2023 CBC plt 243 K/? ? ?L 163-33 7 Not Available [address], [address], 08/09/2023 12:37:15 08/09/20 23 08/09/2023 CBC MPV 10.6 fL 9.4-12 .4 Not Available [address], [address], 08/09/2023 12:37:15 08/09/20 23 08/09/2023 CBC neut% 47.1 % 34.0-6 7.9 Not Available [address], [address], 08/09/2023 12:37:15 08/09/20 23 08/09/2023 CBC neut# 2.88 1.78-5 .38 Not Available [address], [address], 08/09/2023 12:37:15 08/09/20 23 08/09/2023 CBC lymph % 40.7 % 21.8-5 3.1 Not Available [address], [address], 08/09/2023 12:37:15 08/09/20 23 08/09/2023 CBC lymph # 2.48 K/? ? ?L 1.32-3 .57 Not Available [address], [address], 08/09/2023 12:37:15 08/09/20 23 08/09/2023 CBC mono% 9.5 % 5.3-12 .2 Not Available [address], [address], 08/09/2023 12:37:15 08/09/20 23 08/09/2023 CBC mono# 0.58 0.30-0 .82 Not Available [address], [address], 08/09/2023 12:37:15 08/09/20 23 08/09/2023 CBC eo% 1.3 % 0.8-7. 0 Not Available [address], [address], 08/09/2023 12:37:15 08/09/20 23 08/09/2023 CBC eo# 0.08 0.04-0 .54 Not Available [address], [address], 08/09/2023 12:37:15 08/09/20 23 08/09/2023 CBC baso% 0.7 % 0.2-1. 2 Not Available [address], [address], 08/09/2023 12:37:15 08/09/20 23 08/09/2023 CBC baso# 0.04 0.00-0 .08 Not Available [address], [address], 08/09/2023 12:37:15 08/09/20 23 08/09/2023 CBC RDW-CV 12.9 % 11.6-1 4.4 Not Available [address], [address], 08/09/2023 12:37:15 08/09/20 23 08/09/2023 CBC Ig% 0.700 % 0.000- 1.500 Ig % >0.5 Indic ates possi ble Left Shift Not Available [address], [address], 08/09/2023 12:37:15 08/09/20 23 08/09/2023 CBC Ig# 0.040 0.000- 0.093 Not Available [address], [address], 08/09/2023 12:37:15 08/09/20 23 08/09/2023 CBC NRBC% 0.0 % 0.0-0. 2 Not Available [address], [address], 08/09/2023 12:37:15 08/09/20 23 08/09/2023 CBC NRBC# 0.000 0.000- 0.012 Not Available [address], [address], 08/09/2023 12:37:15 08/09/20 23 08/10/2023 C-GROVER CTIVE PROTE IN (RCRP ) C-reactive protein (rcrp) 2.1 mg/dL 0.5-9. 0 Not Available [address], [address], 08/10/2023 15:49:06 08/09/20 23 08/10/2023 SED RATE BY MODIF IED WESTE RGREN sed rate by modified westergren TNP mm/h TEST NOT PERFO RMED Due to a proce ssing error at [facility], we are unabl e to perfo rm this test. The speci men was not proce ssed in time to meet the testi ng sched ule and has/w ill excee d stabi lity by the next sched uled run. Not Available [facility] [address], [address], 08/10/2023 23:28:30 08/11/20 23 08/12/2023 SED RATE BY MODIF IED WESTE RGREN sed rate by modified westergren 6 mm/h < or = 20 normal Not Available [facility] [address], [address], 08/12/2023 04:58:06 09/11/20 23 09/11/2023 POC FLU flu A POC NEGATI VE Not Available [facility] [address] [place], [address], 09/11/2023 11:56:11 09/11/20 23 09/11/2023 POC FLU flu B POC NEGATI VE Not Available [facility] [address] [place], [address], 09/11/2023 11:56:11 09/11/20 23 09/11/2023 COVID 19 TESTI NG POC cov2 antigen NEGATI VE Not Available [facility] [address] [place], [address], 09/11/2023 11:58:11 01/15/20 24 01/15/2024 POC FLU flu A POC NEGATI VE Not Available [facility] [address] [place], [address], 01/15/2024 14:08:15 01/15/20 24 01/15/2024 POC FLU flu B POC NEGATI VE Not Available [facility] [address] [place], [address], 01/15/2024 14:08:15 09/11/20 23 09/11/2023 XR, chest CLINIC AL HISTOR Y: Fever. TECHNI QUE: Fronta l view and latera l view of the chest obtain ed. COMPAR CHUNG: None. FINDIN GS: The heart is normal in size and config uratio n.Ther e is no hilar or medias tinal enlarg ement. There is no focal lung consol idatio n or infilt rate. The bony thorax is intact . IMPRES DIANN: No acute diseas e. Readin g Physic danae: Rowena Arcos ms [email or web address] [facility] [address] [place], [address], 09/25/2023 13:31:38 Result Notes None recorded. Problems Name Problem SNOMED Code Status Onset Date Resolution Date Notes Provider Name and Address Organization Details Recorded Time Impotence Active 2018 Not Available [facility] 1 00:19:41 Serum vitamin B12 below reference range 251932991 Active 2019 Not Available [facility] 1 00:19:41 Helicobact er pylori-ass ociated gastritis 430117117 Completed 202101/15/2024 2016, rx Dionne Alfaro . [address] [place] [address], [address] , [facility] 4 13:54:38 Backache 276519405 Active 2021 KENYA Mata [address] [place] [address], [address] , [facility] 2 16:35:40 Increased frequency of urination 873619140 Active 2021 KENYA Mata [address] [place] [address], [address] , [facility] 2 16:11:52 Open wound of finger 509373436 Completed 200508/21/2013 Not Available [facility] 3 02:03:23 Generalize d abdominal pain 891875374 Completed 200408/21/2013 Not Available [facility] 3 02:02:06 Common cold 34021196 Completed 200408/21/2013 Not Available [facility] 3 02:00:28 Streptococ linsey sore throat 47320283 Completed 200408/21/2013 Not Available [facility] 3 02:02:02 Problem Notes None recorded. Procedures Surgical History Date Name Laterality Status Provider Name and Address Organization Details Recorded Time 2020 [place] - EGD completed Ashok Arreola MD [address] [place], [place] [address], [address], [facility] 1 08:32:01 2020 Refraction completed Malorie Link [facility] 1 12:22:43 2020 [place] - EGD completed Ashok Arreola MD [address] [place], [place] [address], [address], [facility] 1 10:13:28 2019 Budhradolores - EGD completed Ashok Arreola MD [address] [place] [address] [place], [address], [facility] 0 09:40:56 2019 prevention-cardiovascular risk reduction counseling cancelled Billie Washington [facility] 0 09:42:41 2019 prevention-annual alcohol misuse screening cancelled Billie Washington [facility] 0 09:42:41 2018 esophagogastroduodenoscopy completed Dina Burciaga MD [address] [place] [address] [place], [address], [facility] 2 16:26:09 2018 Colonoscopy completed Tammy Burciaga MD [address] [place], [place] [address] [place], [address], [facility] 2 16:23:37 2018 Refraction completed Johanna Kenny, RICCI [address] [place], [place] [address] [place], [address], [facility] 9 09:28:23 2018 Appendectomy completed Tammy Burciaga MD [address] [place], [place] [address] [place], [address], [facility] 2 16:19:22 Imaging Results Imaging Date Name Status LastModified by Organiz ation Details LastModified Time 09/11/2023 XR, chest completed [email or web address] [facility] [address], [place], [address], 09/25/2023 13:31:38 Procedure Notes None recorded. Medical Equipment None Reported. Allergies Allergen ID Allergen Name Allergen Category Reaction Reaction Severity Criticality Documentation Date Start Date Code Code System Note Provider Name and Address Organization Details Recorded Time 21060402 Imodium medicatio n Not available Not available Not available 12/13/2018 [address] 9 RxNorm chest pain QUANG Victor null, [facility] 9 15:34:59 Medications Name Sig Start Date Stop Date Status Note LastModified by Organization Details LastModified Time atorvasta tin 20 mg tablet TAKE 1 TABLET BY MOUTH EVERY DAY active Not Available Not Available No t Available benzonata te 200 mg capsule TAKE 1 CAPSULE BY MOUTH THREE TIMES A DAY NEEDED 10/23 completed Not Available Not Available Not Available clarithro mycin 500 mg tablet Take 1 tablet every 12 hours by oral route for 14 days. 11/04 completed Not Available Not Available Not Available tretinoin 0.025 % topical cream 09/19 completed not taken 09/19/22 tt Not Available Not Available Not Available hydroquin one 4 % topical cream APPLY TO THE AFFECTED AREA(S) BY TOPICAL ROUTE 2 TIMES PER DAY IN THE MORNING AND AT BEDTIME 09/19 completed not taken 09/19/22 tt Not Available Not Available Not Available phenazopy ridine 200 mg tablet TAKE 1 TABLET BY MOUTH 3 TIMES A DAY NEEDED FOR PAIN 08/11 completed pt would like a refill on this 09/19/22 tt Not Available Not Available Not Available prednison e 20 mg tablet TAKE 2 TABLETS EVERY DAY WITH A MEAL FOR 5 DAYS 10/23 completed Not Available Not Available Not Available Viagra 50 mg tablet Take one tablet by mouth once daily 30 minutes to 4 hours prior to sexual activity as needed. Do not exceed 100 mg (2 tablets) daily. 08/27 completed did not get it due to denied by insuranc e. 08/27/20 19 TG Not Available Not Available Not Available Vitamin B-12 500 mcg tablet 09/11 completed Not Available Not Available Not Available omeprazol e 40 mg capsule,d elayed release Take 1 capsule every day by oral route for 30 days. 04/25 completed Not Available Not Available Not Available amoxicill in 500 mg tablet Take 2 tablets every 12 hours by oral route for 14 days. 11/04 completed Not Available Not Available Not Available ondansetr on 8 mg disintegr ating tablet PLACE 1 TABLET TWICE A DAY BY TRANSLIN GUAL ROUTE DIRECTED FOR 7 DAYS. 08/11 completed Not Available Not Available Not Available famotidin e 20 mg tablet TAKE 1 TABLET BY MOUTH EVERY DAY AT BEDTIME NEEDED 09/19 completed not taken 09/19/22 tt Not Available Not Available Not Available tamsulosi n 0.4 mg capsule TAKE 1 CAPSULE BY MOUTH ONCE A DAY AT BEDTIME 09/03 completed Not Available Not Available Not Available lansopraz ole 30 mg capsule,d elayed release Take 1 capsule twice a day by oral route for 14 days. 04/25 completed Not Available Not Available Not Available omeprazol e 20 mg capsule,d elayed release Take 2 capsules every day by oral route for 45 days. 05/16 completed 0 stopped on his own SR Not Available Not Available Not Available codeine 10 mg-guaife nesin 100 mg/5 mL oral liquid TAKE 10 MILLILIT ERS BY MOUTH EVERY 6 HOURS NEEDED active Not Available Not Available No t Available albuterol sulfate HFA 90 mcg/actua tion aerosol inhaler INHALE 2 PUFFS EVERY 4 HOURS BY INHALATI ON ROUTE NEEDED 09/03 completed Not Available Not Available Not Available ondansetr on 4 mg disintegr ating tablet TAKE 1 TABLET BY MOUTH EVERY 8 HOURS NEEDED 08/11 completed pt would like a refill on this med 09/19/22 tt Not Available Not Available Not Available fluticaso ne propionat e 50 mcg/actua tion nasal spray,mylene pension [place] 2 sprays twice a day by intranas al route as directed . active Not Available Not Available No t Available Vitamin B-12 1,000 mcg tablet TAKE 1 TABLET BY MOUTH EVERY DAY 08/27 completed Pt stopped, causing him diarrhea . Not Available Not Available Not Available esomepraz ole magnesium 20 mg capsule,d elayed release TAKE 1 CAPSULE BY MOUTH EVERY DAY 09/19 completed not taken 09/19/22 tt Not Available Not Available Not Available minocycli ne 100 mg tablet Take 1 tablet every 12 hours by oral route for 10 days. 06/12 completed Not Available Not Available Not Available rosuvasta tin 10 mg tablet TAKE 1 TABLET BY MOUTH EVERY DAY 09/03 completed Pt stopped taking 04/17/24 SM Not Available Not Available Not Available rosuvasta tin 20 mg tablet TAKE 1 TABLET BY MOUTH EVERY DAY active Not Available Not Available No t Available Cialis 10 mg tablet Take 1 tablet by mouth at least 30 minutes prior to anticipa willie sexual activity . Do not take more than one tablet within 24 hours. 08/27 completed 08/27/20 19 TG insuranc e didnt cover Not Available Not Available Not Available amoxicill in 500 mg-clarit hromycin 500 mg-lansop razole 30 mg combo pack *PA*TAKE DIRECTED ON PACKETS 11/04 completed Not Available Not Available Not Available Plenvu 140 gram-9 gram-5.2 gram powder packs TAKE DIRECTED 09/17 completed done 09/17/19 -tt Not Available Not Available Not Available Vitals Date Recorded Body height Body mass index (BMI) Body weight Heart rate Body temperature Systolic blood pressure Diastolic blood pressure Provider Name and Address Organization Details Last Updated DateTime 3 162.56 cm 30.4 kg/m2 72651.8 5 g 74 /min 98.3 [degF] 112 mm[Hg] 72 mm[Hg] Maria Victoria Medrano [facility] 3 14:37:59 Date Recorded Body height Body mass index (BMI) Body weight Heart rate Oxygen saturation Oxygen saturation in Arterial blood by Pulse oximetry Body temperature Systolic blood pressure Diastolic blood pressure Provider Name and Address Organization Details Last Updated DateTime 3 162.56 cm 30.6 kg/m2 92664.4 4 g 91 /min 98 % 98 % 98.6 [degF] 110 mm[Hg] 80 mm[Hg] QUANG Foreman [facility] 3 11:33:36 Date Recorded Body height Body mass index (BMI) Body weight Body temperature Oxygen saturation Oxygen saturation in Arterial blood by Pulse oximetry Heart rate Systolic blood pressure Diastolic blood pressure Provider Name and Address Organization Details Last Updated DateTime 4 162.56 cm 32.1 kg/m2 07639.7 7 g 98.6 [degF] 99 % 99 % 85 /min 120 mm[Hg] 90 mm[Hg] QUANG Foreman [facility] 4 13:48:08 Date Recorded Body height Provider Name an d Address Organization Details Last Updated DateTime 04/17/2024 162.56 cm QUANG Victor [facility] 04/17/2024 09:54:44 Date Recorded Systolic blood pressure Diastolic blood pressure Provider Name and Address Organization Details Last Updated DateTime 04/17/2024 108 mm[Hg] 85 mm[Hg] Tammy Gomez, [employer] [address] [place] [address], [address], [facility] 04/17/2024 10:09:12 Date Recorded Body height Body mass index (BMI) Body weight Oxygen saturation Oxygen saturation in Arterial blood by Pulse oximetry Heart rate Systolic blood pressure Diastolic blood pressure Provider Name and Address Organization Details Last Updated DateTime 162.56 cm 31.4 kg/m2 79925.4 g 97 % 97 % 81 /min 96 mm[Hg] 70 mm[Hg] QUANG Victor [facility] 09:10:44 Social History Question Answer Notes LastModified by Organizat ion Details LastModified Time Tobacco Smoking Status Never Smoker [facility] 06/13/2022 15:45:01 What Is Your Level Of Alcohol Consumption? None [email or web address] Information not available 06/13/2022 What Is Your Level Of Caffeine Consumption? Moderate Information not available 06/25/2014 How Much Tobacco Do You Chew? None [email or web address] Information not available 11/04/2016 What Type Of Diet Are You Following? REGULAR Information not available 06/25/2014 Do You Or Have You Ever Used E-cigarettes Or Vape? 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 No Information not available 06/25/2014 Live Alone Or With Others? With Others Information not available 06/25/2014 Marital Status Informatio n not available 06/25/2014 What Was The Date Of Your Most Recent Tobacco Screening? 01/15/2024 [email or web address] Information not available 01/15/2024 How Many Children Do You Have? 3 Information not available 06/25/2014 Smoke Alarm In Home Yes Information not available 06/25/2014 Do You Or Have You Ever Used Smokeless Tobacco? Never Used Smokeless Tobacco [email or web address] Information not available 08/27/2019 How Much Tobacco Do You Smoke? No [email or web address] Information not available 08/27/2019 How Many Years Have You Smoked Tobacco? 0 [email or web address] Information not available 08/27/2019 Sex: Male Functional Status None recorded. Mental Status None recorded. Family History Nothing Reported Notes:M and F alive M with c irrhosis unk to pt. Medical History No medical history recorded. Immunizations Vaccine Type Date Status Note Provider Nam e and Address Organization Details Recorded Time Td(adult) unspecified formulation 6 completed Not Available [facility] 06/28/2021 00:19:41 influenza, seasonal, intradermal, preservative free 4 completed Not Available [facility] 10/19/2019 02:31:51 Influenza, split virus, quadrivalent, PF 9 completed Not Available [facility] 10/19/2019 02:24:03 Influenza, split virus, quadrivalent, PF 1 completed Hannah Carmichael LPN null, [facility] 11/18/2020 15:40:13 Tdap 1 completed Hannah Carmichael LPN null, [facility] 11/18/2020 15:40:13 COVID-19, mRNA, LNP-S, PF, 30 mcg/0.3 mL dose 1 completed Nilmari, RMA Damico null, [facility] 10/24/2023 08:24:51 COVID-19, mRNA, LNP-S, PF, 30 mcg/0.3 mL dose 1 completed Nilmari, RMA Damico null, [facility] 10/24/2023 08:24:58 COVID-19, mRNA, LNP-S, bivalent, PF, 30 mcg/0.3 mL dose 2 completed Nilmari, RMA Damico null, [facility] 10/24/2023 08:25:12 Past Encounters Encounter ID Performer Location Encounter Start Date Encounter Closed Date Diagnosis/Indication Diagnosis SNOMED-CT Code Diagnosis ICD10 Code Diagnosis Note [id number] [facility], OFFICE [address] [place] [address] 10/25/2004 10:17:02 10/26/2004 12:44:07 [id number] [facility] [address] [place] [address] [place] [id number] 03/04/2005 09:17:46 03/07/2005 10:01:21 [id number] [facility] [place] [address] [place] [address] [place] [id number] 08/01/2005 14:16:08 08/01/2005 16:41:40 [id number] [facility] [address] [place] [address] 06/22/2006 13:30:59 06/22/2006 16:44:28 [id number] [facility] [address] [place] [address] 06/26/2006 08:58:39 06/26/2006 12:20:41 [id number] [facility] [place] [address] [place] [address] [place] [id number] 07/03/2006 09:17:35 07/03/2006 13:25:30 [id number] Anne Galvez [facility] [address] [place] [id number] 06/25/2014 09:05:14 06/25/2014 10:02:28 Viral syndrome [id number] appears resolving await tic borne panel drawn at [facility] myalgias, fatigue through convalesce nce discussed. General ex amination of patient [id number] we discussed prevention and screening and occupation al exposures at [place] [facility] NSAID-asso ciated gastropathy [id number] due to need for nsaid analgesia while acutely ill Mass of skin 776230648 2 mm tender SQ nodule along right lower costal margin is very bothersome to patient reports is is painful even when not touched wishes eval for removal [id number] [facility] [address] [place] [address] 06/30/2014 07:40:49 06/30/2014 09:08:29 Viral syndrome [id number] resolving clinically is getting more energetic prior- appears resolving await tic borne panel drawn at [facility] myalgias, fatigue through convalesce nce discussed. NSAID-asso ciated gastropathy [id number] due to need for nsaid analgesia while acutely ill PPI as needed Mass of skin 658401533 r eminded to call surgery prior=2mm tender SQ nodule along right lower costal margin is very bothersome to patient reports is is painful even when not touched wishes eval for removal Inflammato ry disease of liver [id number] new [facility]- reports was told to stop binge drinking hard liquor in 2002 after having what appears to have been an [place] in [place]. At the time weekend 5-6 shots once a week, since has been off hard liquor now drinks 3-4 beers twice a week, but may go weks w/o drinking. on another note He is unable to explain his mothers known cirrhosis, states is not alcoholic plan continue lab workup, repeat labs in a week Agrees to see GI if my workup is unrevealin g. Influenza vaccine needed [id number] [id number] Sylvia Galvan , [facility] [place] [address] [place] [address] 02/15/2016 16:11:51 02/15/2016 17:09:35 Left sided abdominal pain 299169209 R10.9 progressiv e past month, now constant, keeps him up HS will begin with abd xray and \f/u as indicated may need CT Low back pain 252374887 M54.5 comes and goes lasts a week recommende d ibuprofen or naproxen for benigh lumbago. [id number] Dwain Lagunas MD , [facility] [place] [address] [place] [address] 03/18/2016 15:49:38 03/18/2016 16:37:49 Left sided abdominal pain 571592996 R10.9 progressiv e past month, now constant, keeps him up HS CT abdomen proved negative.n o postprandi al pain.PMH had EGD, age 27 diagnosed with gastric erosion. felt alcoholic . p/w post prandial diarrhea, clear emesis. when young would drink on weekends, none (occ beer)since about age 29. will treat empiricall y for gastritis, labs as well [id number] Dwain Lagunas MD , [facility] [place] [address] [place] [address] 03/30/2016 16:22:14 03/30/2016 16:51:16 Left sided abdominal pain 066747491 R10.9 has eased with cutting coffee to qod. progressiv e past month, now constant, keeps him up HS CT abdomen proved negative.n o postprandi al pain.PMH had EGD, age 27 diagnosed with gastric erosion. felt alcoholic . p/w post prandial diarrhea, clear emesis. when young would drink on weekends, none (occ beer)since about age 29. will treat empiricall y for gastritis, labs as well Helicobact er pylori gastrointestinal tract infection [id number] B96.81 . We will eradicate it with the antibiotic packet I just sent to your pharmacy. It is the packet of antibiotic s we had discussed. While you are taking these pills, you may hold the omeprazole antacid that I had already given you , and restart it when you complete the packet, until the omeprazole tablets run out. [id number] Dwain Lagunas MD , [facility] [place] [address] [place] [address] 11/04/2016 16:57:15 11/04/2016 17:39:32 Left sided abdominal pain 926827702 R10.9 resolved. has eased with cutting coffee to qod. progressiv e past month, now constant, keeps him up HS CT abdomen proved negative.n o postprandi al pain.PMH had EGD, age 27 diagnosed with gastric erosion. felt alcoholic . p/w post prandial diarrhea, clear emesis. when young would drink on weekends, none (occ beer)since about age 29. will treat empiricall y for gastritis, labs as well Helicobact er pylori gastrointestinal tract infection 999011481 B96.81 non specific and atypical LUQ pains have resolved'p t nervous and having general anxieties related to fears of GI illness, asking for EGD. Reasonable request will refer [facility]. 03/2016. We will eradicate it with the antibiotic packet I just sent to your pharmacy. It is the packet of antibiotic s we had discussed. While you are taking these pills, you may hold the omeprazole antacid that I had already given you , and restart it when you complete the packet, until the omeprazole tablets run out. [id number] Dwain Lagunas MD , [facility] [place] [address] [place] [address] 04/25/2018 15:50:55 04/25/2018 16:46:45 Cervical radiculopathy 40963256 M54.12 + self described spurlingsd emonstrate s it in the officeradi ates to right first 3 digitsrigh t G1pvqvb with posterior neck pain and this electric shooting pain when rotates head to right abby in extension Plantar fa sciitis of left foot [id number] 2482151 M72.2 dx and treatments discussed [id number] Rosalee Parisi.OChelsy , [facility] [place] [address] [place] [address] 12/13/2018 15:25:06 12/13/2018 16:04:24 Right upper quadrant pain 325689387 R10.11 suspect gastritis or GB/stonead vised low fat diet- mostly fluid on prev CT scan 2015 - did have small rigth kidney stonecurre ntly able to eat and drink well [id number] Dwain Lagunas MD , [facility] [place] [address] [place] [address] 04/22/2019 13:35:33 04/22/2019 15:41:42 Meibomian gland dysfunction 152497666 H02.881 Right upper lidDx discussedp t reassurred , this is spontaneou s, and if an infection this treatment will clear it up.if it persists then this will have presented itself as a chalazion or cyst which may persist for many weeks. Warm compresses as much as possible [id number] Dwain Lagunas MD , [facility] [place] [address] [place] [address] 06/12/2019 10:54:40 06/12/2019 11:40:40 Impotence 074408774 N52.9 Can initiate erection but difficulty maintainin gTrial Viagra 50 mgNo cardiac disease, BP stable todayAdvis ed take 30 mins to 4 hours prior to anticipate d intercours eAdvised to call us or 911 if experienci ng painful erections or erections that persist for more than an hourAdvise d to call with any new/worsen ing sx such as chest pain, palpitatio ns, SOBF/u in 1 month Dizziness 349144773 R42 Worse in the morning and with position changes - likely positional vertigoOff ered prn meclizine and PT for Elisha maneuvers- pt declines for nowCheck CBC and CMP today r/o other etiologies Will f/u in 1 monthAdvis ed the patient to call with any new/worsen ing sx, i.e. blurred vision, worsening dizziness, chest pain, SOB [id number] Arabic Ben Kenny, OD Eye Care, [facility] [address] [place] [address] 06/14/2019 09:02:16 06/14/2019 10:45:28 Presbyopia 29452105 H52.4 Myopia 29623342 H52.13 [id number] KENYA Rizzo FP, [facility] [place] [address] [place] [address] 07/18/2019 14:04:49 07/18/2019 14:45:32 Megaloblastic anemia due to vitamin B>12< deficiency 82376774 D53.1 Vitamin B12 deficiency noted on 06/13/2019 Advised continue to take supplement s and will recheck in another 5 months.GI referral placed ? needs endoscopy - per patient. Left lower quadrant pain 918735769 R10.32 Benign exam today. Reports intermitte nt pinching feeling left lower quadrant. No red flags.CT abdomen 01/07/19 showed significan t improvemen ts s/p appendecto my, otherwise benign.Lip ase normal 01/07/19, LFTs stable 06/12/19, C diff negative 12/19/18Hi story of ETOH abuse, vitamin B12 noted after last OV, started on vitamin B25Omblxwt requesting GI consult, ? endoscopy, although unable to locate where in previous notes another provider had mentioned this - referral placedPati ent to follow-up in 1 one monthAdvis ed to follow-up sooner if develops any new/worsen ing symptoms Impotence 962804698 N52. 9 Can initiate erection but difficulty maintainin gViagra wasn't covered after last visit, will trial Cialis but advised patient unlikely will not coverDiscu ssed stress relief methods, such as deep breathing, meditation . Advised having open conversati ons with his partner about intimacy and ways to improve his sex drive.Advi sed to call us or 911 if experienci ng painful erections or erections that persist for more than an hourAdvise d to call with any new/worsen ing sx such as chest pain, palpitatio ns, SOBF/u in 1 month Active or passive immunization 892342179 Z23 Flu shot given today. [id number] KENYA Rizzo , [facility] [place] [address] [place] [address] 08/27/2019 09:01:07 08/27/2019 09:41:48 Left lower quadrant pain 478171355 R10.32 Continues to follow with GI, will repeat labs this week and is scheduled for endoscopy/ colonoscop y 09/13/2019 .Most recent lab work with GI 08/14 revealed AST 44 (high), ALT 24 (normal), normal total bili. Albumin 4.9 (high). Total protein 8.9 (high).Lip ase normal 01/07/19, LFTs stable 06/12/19, C diff negative 12/19/18Pa tient to follow-up in 1 one monthAdvis ed to follow-up sooner if develops any new/worsen ing symptoms Megaloblas tic anemia due to vitamin B>12< deficiency 20363458 D53.1 Patient continuing to follow with GI. Stopped taking vitamin B12 supplement s due to nausea. Advised to continue to discuss with GI, may be an underlying malabsorpt ion component. Endoscopy/ colonoscop y in place for 09/13/19.F ollow-up with [facility] in 1 month. Impotence 933270200 N52. 9 Viagra, Cialis not covered by insurance, never took medication s .States mostly resolved, no concerns.F ollow-up as needed. Grinding teeth 94206932 R46.89 Pt grinding teeth at night. Does not think stress related - declines IB consult at this time.Advis ed to follow-up with dentist for ongoing dental issues. Advised to trial a mouth guard at night.Foll ow-up with LEÓN GIBSON in 1 month. [id number] KENYA Rizzo , [facility] [place] [address] [place] [address] 09/17/2019 08:23:01 09/17/2019 12:17:35 Gastro-esophageal reflux disease with esophagitis 637484308 K21.0 As above. Left lower quadrant pain 609484140 R10.32 Continues to follow with GI. Follow-up in place for October 04.Review ed EGD with patient. Esophagiti s with hiatal hernia.No current meds for esophagiti s. Trial famotidine BID x 2 weeks to see if any improvemen t.Seems to have an element of anxiety that flares symptoms - discussed interventi ons for the future (anti-anxi ety medication s, [facility]) if continues to have symptoms despite treatment. Remote history of ETOH dependence but remains sober - advised continue.1 10/14 blood work showed a mild elevation in AST at 44, but repeat CMP 09/06/19 showed normal liver enzymes. - Reviewed with patient today.Ivet ent to follow-up in 1 one month with LEÓ[facility] GIBSON.Advised to follow-up sooner if develops any new/worsen ing symptoms Hiatal hernia 99740259 K 44.9 As above. [id number] Nica Shafer er, [facility] , [facility] [place] [address] [place] [address] 10/11/2019 15:01:34 10/14/2019 13:24:42 Gastritis 7338544 K29.70 Followed by MELI Israelx of H pylori Grade C esophagiti s per EGD Seen by GI on 10/07/19, advised omeprazole 20 mg BID prior to meals.Repe at EGD in 3 months Serum daphne min B12 below reference range 218356696 R79.89 B12 229 on 06/13/19, with elevated RBCs 5.25, treated with B12 1000 mcg daily, did not tolerate, stopped. B12 587 on 08/14/19 and RBCs 5.61 Reviewed recent GI labs with patient.Hi s methylmelo eileen acid level and homocystei ne leves were NORMAL, making B12 deficiency / pernicious anemia less likely. Parietal cell antibody was elevated, however this can bee seen in gastritis, pt has gastritis. Pt not currently treated [facility] B12. Advised recheck labs in next month - cbc and b12. [id number] Nica Shafer er, [facility], [facility] [place] [address] [place] [address] 05/19/2020 08:12:55 05/20/2020 14:13:10 Pain in left foot 7078964556 41187 M79.672 7+ weeks pain lateral plantar aspect of foot, and L lateral malleolus. Worse withdoris and plantar flexion. No trauma. Improves wtih massage. Likely plantar fasciitis, possible tendonitis . Advised ice, massage with ice water bottle, nsaids prncontinu e to wear supportive shoes with insertsref erred to podiatry as is not improving. [id number] Francois Camp DPM Podiatry, [address] [address] 05/25/2020 08:22:06 06/01/2020 12:45:56 Peroneal tendinitis of left lower limb 9039585034 46943 M76.72 Plantar fasciitis 526054 003 M72.2 [id number] Katie Villar RN [facility], [address] [address] 09/03/2020 07:31:17 09/03/2020 12:46:58 [id number] Maria Fernanda Pérez , [facility] [place] [address] [place], [place] [address] [address] 11/18/2020 07:55:49 11/20/2020 16:46:33 Pain in upper limb 146345091 M79.602 Pain for three weeks left shoulder after heavy lifting (fridge) and has developed a small mass beneath the skin over the last week. Good ROM and strength of left shoulder. Refer to sports med for evaluation . Consider possible tendon injury. Try applying ice as needed to help with pain/swell ing. Take Tylenol as needed for the pain. Gastro-eso phageal reflux disease with esophagitis 070234851 K21.00 Saw GI yesterday. Plans to do colonoscop y and repeat endoscopy. Esophagiti s on upper endoscopy in September 2020. Now on famotidine 20 mg daily at bedtime. Off omeprazole . Immunization due 0873811 08 Z28.3 Will arrange for tetanus and flu vaccines with nursing. Primary er ectile dysfunction 556740977 N52.9 Never took Viagra, insurance didn't cover. No recent issues. Consider urology referral in the future if needed. Hyperpigme ntation of skin 85079547 L81.9 Darkened areas of skin around his eyes for 3 months. He thinks related to omeprazole use, but hasn't improved since stopping. Trial topical retinoid once daily at bedtime and follow-up again in 3-4 weeks to re-evaluat e. [id number] Hannah Carmichael LPN , [facility] [place] [address] [place] [address] 11/18/2020 15:21:31 11/20/2020 16:45:50 Active or passive immunization 566903353 Z23 Flu shot given today. [id number] Michelet Boykin MD Sports Medicine, [address] [address] 11/26/2020 12:29:43 11/27/2020 17:01:09 Shoulder pain 14209962 M25.512 Kedar is a 50-year-ol d male with a small painful lump in his anterior left shoulder uncertain etiology. He does appear to be over the long head of the biceps tendon or just lateral to this and may be related to a partial tear of the long head of his biceps tendon or possibly biceps tendon subluxatio n or a ganglion cyst. He has a normal biceps muscle contour without evidence of a full rupture of the long head of the biceps tendon does not appear to have a rupture of the pectoralis muscle on exam. At this time with the uncertaint y of the cause of the swelling I have asked that he come into the office for an in person examinatio n. At that time we can also perform an ultrasound of the shoulder in the area of swelling which will also help determine the cause of his symptoms. We will plan to contact him with a time and date for this appointmen t. [id number] Michelet Boykin MD Sports Medicine, [address] [address] 12/03/2020 16:38:50 12/16/2020 09:34:24 Shoulder pain 85126315 M25.512 Kedar is a 50-year-ol d male with a small area of swelling of the left anterolate ral shoulder but I feel is most consistent with a lipoma. A brief ultrasound performed today reveals an intact rotator cuff without evidence of a tear. He had a well-circu mscribed cystic lesion within the superficia l adipose tissue of his shoulder. I did advise that this is likely a lipoma and have asked that he have a more formal ultrasound read by radiology to confirm this diagnosis. We discussed treatment of lipomas in general today. Her plan to call and schedule his ultrasound after this office visit. If indeed he does have a lipoma who can follow up with me only as needed for further care. [id number] Katie Villar RN [facility], [address] [address] 02/08/2021 08:37:40 02/08/2021 12:28:35 [id number] Johanna Kenny, OD Eye Care, [address] [address] 05/07/2021 14:42:44 05/14/2021 16:40:41 Myopia 78714008 H52.13 Presbyopia 60791368 H52. 4 [id number] Debbie Parrish RN [facility], [address] [address] 05/17/2021 07:24:37 05/17/2021 13:34:38 [id number] Nica Shafer er, [facility] , [facility] [address] [place] [address] 05/16/2022 15:17:12 05/19/2022 09:39:16 COVID-19 985328823 U07.1 Tested positive 05/14/22Sym ptoms started , include back pain, fever (102), headaches, diarrhea, body aches, cough, light headedness , vomiting Taking mucinex and tylenolIs starting to feel a little better, slept last night family of 8, with 4 yo and infant States he got covid vaccines, 3 vaccines His BMI is over 25, otherwise no co-morbid conditions placing him at higher risk for severe illness.Gi lewis improving symptoms, vaccinated , and low risk, advised against paxlovid. Counseled on paxlovid, side effects, possibilit y for rebound, benefits. He has normal renal function. Pt agreed with plan for supportive care.Revie wed CDC isolation recommenda tions Gastritis 7949146 K29.[address] Pulido, GIHx of H pylori Grade C esophagiti s per EGD Seen by GI on 10/07/19, advised omeprazole 20 mg BID prior to meals. avoid nsaidscont inue esomeprazo le and famotidine [id number] , [facility] [place] [address] [place] [address] 06/03/2022 15:07:39 06/27/2022 12:51:21 Backache 437509471 M54.9 POC UA result discussed with patient. - not consistent with UTI.Order for US for R kidney for possible kidney stonePt will take OTC acetaminop hen 325 mg two tabs every 6 hours as needed for pain management .Pt understand s to increase fluid intake up to 2L per day.Pt will go to ED if the pain is uncontroll able or unable to keep fluids down Dysuria 81430684 R30.9 [id number] Dwain Lagunas MD , [facility] [place] [address] [place] [address] 06/13/2022 15:37:58 06/29/2022 13:20:44 Increased frequency of urination 505265261 R35.0 Pt understand s to increase fluid intake up at least 2L per day. Pt understand s to avoid drinking excessive coffee or any caffeinate d beverage because dehydratio n may aggravate the discomfort .Pt will return to clinic for worsening symptoms.P SA ordered to rule out any prostate disorder.O rder for urology referral submitted Backache 189192178 M54.9 Pt understand s this diffused back pain with less intensity might have been caused by kidney stone that might have been excreted before CT scan performed. Pt will take OTC acetaminop hen 325 mg two tabs every 6 hours as needed for pain management . [id number] Dwain Lagunas MD , [facility] [place] [address] [place] [address] 06/21/2022 08:19:03 06/21/2022 08:52:42 Increased frequency of urination 329349023 R35.0 LBP resolved followingc t negative in [facility] - perhaps was a past stoneER prescribbe d azocontinu es with frequent voidshe is concerned is covid related will image bladdre Myalgia/my ositis - multiple 949818711 M79.10 left hand locks, low back as wellmassag es for reliefis triggerred by use- eg after lifting when i use my muscles co nt tylenol [id number] DECEMBER MARSHALL SMITH DNP , [facility] [place] [address] [place] [address] 09/19/2022 16:43:59 09/20/2022 09:55:04 Nausea and vomiting 66365644 R11.2 zofran as needed, reviewed R/B/A Diarrhea 32620969 R19.7 BRAT diet, push fluids--RT O within 24 hours for persistant or worsening diarrhea Viral gastroenteritis 11 1131322 A08.4 suspect symptoms related to viral gastroente ritis since several sick contacts and other family members with similar symptoms-- discussed supportive care rest, push fluids, BRAT diet, APAP as needed for neck pain--RTO within 24 hours for worsening symptoms or 2-3 days if no improvemen t for further evaluation [id number] Leo Banegas MD , [facility] [place] [address] [place] [address] 08/08/2023 14:32:40 08/08/2023 15:30:19 Acute bronchitis 04555721 J20.9 [id number] Dionne Alfaro . , [facility] [place] [address] [place] [address] 09/11/2023 11:17:21 09/11/2023 17:17:46 Upper respiratory infection 25986987 J06.9 Patient presents with symptoms consistent with viral infection. Flu and Covid negative today. and 2 children have the flu.Contin ue with ibuprofen for fever and sweats.Wit h persistent cough will send him for Xray to make sure he does not have pneumonia. Discussed supportive care: pushing fluids, rest, nasal saline and Mucinex as needed.Osmany l give RX for tessalon perles.Enc ouraged to follow up if symptoms persist for more then 10 days or if they are worsening. Discussed natural course of viral illnesses and lack of evidence for treating with antibiotic s unless evidence of pneumonia on CXR. Cough 79750276 R05.1 will check Xray and give benzonatat e for cough. [id number] Dionne EDGAR, [facility] [place] [address] [place] [address] 01/15/2024 13:36:08 01/15/2024 15:19:54 Cough 37290064 R05.9 Patient presents with cough. flu A and B negative.L ikely secondary to: viral URI.Discus sed supportive measures.F ollow up if not improving or with worsening symptoms. [id number] LEÓN Patel, [facility] [place] [address] [place] [address] 04/17/2024 09:38:36 04/18/2024 08:24:41 COVID-19 332718734 U07.1 tested + yesterday, sxs x 3 dayssxs starting to improvedis cussed paxlovid- pt not interested will c/w fluids, rest, APAP/NSAID s prnf/u prn [id number] LEÓN Patel, [facility] [place] [address] [place] [address] 09/03/2024 09:00:41 09/03/2024 09:41:24 Cough 28043323 R05.9 Patient presents with cough.Like ly secondary to: post viral coughwill start flonase 2 sprays nostril dailyrobit ussin AC qhsDiscuss ed supportive measures.F ollow up if not improving or with worsening symptoms. Health Concerns Section Related Observation LastModified by Organization Detai ls LastModified Time None Recorded Concern Status LastModified by Organization Details LastModified Time None Recorded Advance Directives Directive None Recorded Payers Encounter Date Sequence Insurance Name Policy Number Policy Kim Covered Member ID Kim Member ID Guarantor Name 08/08/2023 1 [facility] - DIRECT CONNECTORCARE TYPE I (HMO) [id number] Kedar A James [id number] 1 Kedar Ramirez 09/11/2023 1 [facility] [employer] - DIRECT CONNE[employer]CARE TYPE I (HMO) [id number] Kedar A James [id number] Kedar James 01/15/2024 1 [facility] [employer] - DIRECT CONNE[employer]CARE TYPE I (HMO) [id number] Kedar A James [id number] 1 Kedar James 04/17/2024 1 [facility] [employer] - DIRECT CONNE[employer]CARE TYPE I (HMO) [id number] Kedar A James [id number] 1 Kedar Ramirez 09/03/2024 1 [facility] [employer] - DIRECT CONNECTORCARE TYPE I (HMO) [id number] Kedar A James [id number] 1 Kedar Ramirez Notes Date Note Type Note Provider Name and Address Organization Details Recorded Time 09/11/2023 text/html URIReported bypatient.Notes:Eliel karimi presents to discuss URI symptoms since . Patient reports fever, body aches, cough, congestion, and bilateral flank pain (when coughing and when laying down) since . Pt denies s/t. Had shortness of breath x 2 days, got better. Vomited Monday, not since.Had 2 initial Covid shots only.Nonsmoker.Pt states he has been taking ibuprofen and Mucinex - ibuprofen reduces fever temporarily.BATISTA on top of his head bothers him a lot, fever keeps coming back when advil wears off. Feels hot and cold and sweats.Home Covid test on day 1 was negative.His and kids are sick at home too.Codeine cough syrup in the past caused urinary retention. Dionne Alfaro. [address] [place] [address], [phone], [facility] 09/11/2023 12:04:53 01/15/2024 text/html Patient presents to discuss sore throat, dry cough, body aches and fever for 6 days. Patient states he took a covid test before coming in it was negative. Sore throat started Monday, body aches on .Nonsmoker .No shortness of breath, back hurts from coughing.Used OTC ibuprofen and some cough syrup.states dry spot outer right ear and if touches it feels like something crawling there. Dionne Alfaro. [address] [place] [address], [phone], [facility] 01/15/2024 14:15:55 04/17/2024 text/html 8 minutes.vv-videosx s started 3 days- sore throat, fever in am, body aches, diarrhea, coughno sobtested + covid yesterday.sleep is ok- weird dreamshad covid last 2021feeling a bit better- diarrhea is better, no sob, more energy Tammy Gomez NP [address] [place] [address], [phone], [facility] 04/17/2024 10:10:35 09/03/2024 text/html sick x 2 weeksstarted with diarrhea, body aches, chillsthen developed sinus congestion, coughotc nightquill and day quiljust dry cough, worse with laying downafebrile Tammy Gomez NP [address] [place] [address], [place], [phone], [facility] 09/03/2024 09:26:20
== END 2024-11-27 16:10 | disposition home or self-care (01) ==
LOC: HO.LAB 16:09
PROVIDERS: PCP Internal Medicine; Visit Provider Internal Medicine Cardiovascular Disease
DX: Z13.89 Encounter for screening for other disorder (principal)

== ENCOUNTER 2024-11-28 09:08 | Outpatient (REF) | payer OTHER, SELFPAY ==
[2024-11-28 10:32] LABS: Anion Gap 9 (12-20); Blood Urea Nitrogen 20 mg/dL (9-16); Calcium 8.6 mg/dL (8.4-10.2); Carbon Dioxide 26 mmol/L (22-29); Chloride 108 mmol/L (96-108); Cholesterol 127 mg/dL (<200); Estimated Glomerular Filt Rate > 60; Glucose Random 93 mg/dL (60-115); Potassium 4.4 mmol/L (3.3-5.1); Sodium 139 mmol/L (135-145); Triglycerides 56 mg/dL (<150)
[2024-11-28 10:51] LABS: HDL Cholesterol 37 mg/dL (>40); LDL Cholesterol Calculated 79 mg/dL (<100)
== END 2024-11-28 09:09 | disposition home or self-care (01) ==
LOC: HO.LAB 09:08
PROVIDERS: Nurse Practitioner; Visit Provider Internal Medicine Cardiovascular Disease
DX: E78.00 Pure hypercholesterolemia, unspecified (principal)
CPT/HCPCS: 36415; 80048; 80061

== ENCOUNTER 2024-12-02 15:47 | Outpatient (AMB) | payer OTHER, SELFPAY ==
--- NOTE | 2024-12-02 15:52 | A.OFFVIS_ITS ---
Vital Signs 12/02/24 15:54 Height 5 ft 5 in Weight 188 lb 11.451 oz BMI 31.4 BP 110/62 Blood Pressure Location Lt brachial Position Sitting Pulse 78 Pulse Source Monitor Intake Visit Reasons: 4 mth f/up r/s 09-11-24 Intake Note: 4 mth f/up [employer] Chair Required: No Accompanied by: Self / Same As Patient Allergies loperamide [From Imodium A-D] Allergy (Verified 11/01/23 15:22) Headache atorvastatin Adverse Reaction (Intermediate, Verified 11/10/23 13:41) joint and muscle pain Medication List - Last Reconciled 12/02/24 by Kun Rosado MD rosuvastatin 20 mg PO DAILY HPI Comments Details: 54-year-old gentleman who is here for follow-up. He was seen in the hospital when he presented with chest pain and underwent stress echocardiogram which was normal at good functional capacity. He was noticed to have elevated LDL of 182 and has been on Crestor 10 mg daily. He recently had COVID-19 infection and since then has been experiencing fatigue and muscle aches and pains. Previously also had some trouble with the atorvastatin with joint pains and muscle pains which is unusual for statins to get joint pains. On 10 mg rosuvastatin he has been stable. No chest discomfort shortness of breath. 12/02/2024: He is here for follow-up. His cholesterol has improved significantly with Crestor and some dietary changes. He is denying any chest discomfort shortness of breath. Blood pressure is well controlled. [facility] Medical History Alcohol abuse, in remission Social History Household Members: Family Housing: Apartment Do you presently have visiting nurse or other home services: No Patient Tobacco Use Status: Never used Tobacco Review of Systems Const Denies chills, Denies fatigue, Denies fever(s), Denies frequent falls, Denies weakness, Denies weight gain and Denies weight loss ENT Denies dizziness Card Denies chest pain, Denies leg edema, Denies lightheadedness, Denies palpitations, Denies dyspnea and Denies dyspnea on exertion Resp Denies cough, Denies dyspnea and Denies dyspnea on exertion GI Denies hematochezia Musc Denies abnormal gait, Denies muscle weakness, Denies numbness, Denies radiating pain into limb and Denies tingling Neuro Denies abnormal gait, Denies dizziness, Denies frequent falls, Denies numbness, Denies tingling and Denies weakness Endo Denies fatigue and Denies palpitations Physical Exam Vital Signs: Last Vital Signs Pulse 78 12/02/24 15:54 BP 110/62 12/02/24 15:54 BMI result Body Mass Index 31.4 GENERAL APPEARANCE: in no acute distress, pleasant. NECK: no carotid bruit, no jugular venous distention. SKIN: no suspicious lesions, warm and dry. HEART: no murmurs, regular rate and rhythm. LUNGS: clear to auscultation bilaterally. ABDOMEN: soft, nontender. EXTREMITIES: no edema. PERIPHERAL PULSES: equal. NEUROLOGIC: No gross deficits, AAO X 3 Office Procedures EKG Details: Sinus rhythm 78 beats per minute, normal axis, inferior infarct, anterolateral T-wave inversions-as before, QTC 437 milliseconds. [id number], Complete Assessment & Plan Assessment & Plan (1) Hypercholesteremia: Code(s): E78.00 - Pure hypercholesterolemia, unspecified Category: Medical (2) Abnormal EKG: Code(s): R94.31 - Abnormal electrocardiogram [ECG] [EKG] Category: Medical Plan [age] year gentleman with hyperlipidemia and precordial T-wave inversions. He underwent stress testing which was normal. ECHO has shown mild left ventricular hypertrophy. It is possible that the T-wave changes are related to left ventricular hypertrophy. I am unsure why he has LVH though. He does not have hypertension. The ECG changes are quite constant and there is no dynamic component. He also has no symptoms currently. I do not think these changes are ischemic in nature. Continue Crestor as before. Follow-up with us in 6 months. Thank you for allowing me to participate in the care of your patient. Please feel free to contact me if you have any questions. Coding Level of Care Code Est Pt Level 4 (52890) Diagnoses Hypercholesteremia E78.00 Abnormal EKG R94.31 CPT Codes EKG - CPT: 10823-[id number], Complete ([id number])
[2024-12-02 15:54] VITALS: BP 110/62; PULSE 78; BMI 31.4
--- OUTSIDE RECORDS SUMMARY | 2024-12-02 18:34 | XMS_ITS | Data Portability ---
Author Organization [facility], , [facility] Address [address] [place] [address] Care Team Providers Care Nib Finisher Name Role Phone [facility] [employer] VENKAT RICH Primary Care Provider Assessment Encounter [...] duration of symptoms. He continues to work. Hohkzqlmc-nud-yjt appearing and in no acute distress. Vital [...] was notified that the provider location is [facility] Patient location: home During the [...] . Lab rapid flu (A+B) 2023 024 [facility], [address] [place] [address], [address], 4 14:32:01 rapid SARS CoV 2 Ag, QL IA, respirat ory specimen 2022 023 [facility], [address] [place] [address], [address], 3 11:58:11 rapid flu (A+B) 2022 023 [facility], [address] [place], [address], 3 11:56:12 CBC w/ auto diff 2022 023 [facility], [address] [place], [address], 3 14:19:14 C reactive protein, QN, serum or plasma 2022 023 [facility], [address] [place], [address], 3 15:39:30 ESR (erythro cyte sediment ation rate), blood 2022 023 [facility], [address] [place], [address], 3 15:39:44 Referral None recorded . Procedures None recorded . Surgeries None recorded . Imaging XR, chest - ? pneumoni a, cough. fever, crackles at bases 2022 023 [email or web address] [facility] ([facility]), [address], [place], [address], 3 17:17:46 Medication Orders codeine 10 mg-guaif enesin 100 mg/5 mL oral liquid 2023 024 [facility]acy #1095, [address] [place] [address], [address], 4 09:24:43 Flonase Allergy Relief 50 mcg/actu ation nasal spray,jimenez spension 2023 024 [facility] #1095, [address] [place] [address], [address], 4 09:24:42 albutero l sulfate HFA 90 mcg/actu ation aerosol inhaler 2023 024 [facility]acy #1095, [address] [place], [address], 4 09:07:02 codeine 10 mg-guaif enesin 100 mg/5 mL oral liquid 2023 024 [facility] [address] [place], [address], 4 09:49:48 benzonat ate 200 mg capsule 2022 023 [facility]/Pharmacy #1095, [address] [facility], [place], [address], 21:19:09 Patient TargetsNo targets recorded. Patient InstructionsNo instructions recorded. Reason for Referral None Reported. Results Created Date Observation Date Name Description Value Unit Range Abnormal Flag Note LastModifiedBy Organization Detail LastModifiedTime 08/09/2008/09/2023 CBC WBC 6.10 K/? ? ?L 4.23-9 .07 Not Available [address], [address], 08/09/2023 12:37:15 08/09/2008/09/2023 CBC RBC 5.23 M/? ? ?L 4.63-6 .08 Not Available [address], [address], 08/09/2023 12:37:15 08/09/2008/09/2023 CBC HGB 14.8 g/dL 13.7-1 7.5 Not Available [address], [address], 08/09/2023 12:37:15 08/09/2008/09/2023 CBC HCT 45.7 % 40.1-5 1.0 Not Available [address], [address], 08/09/2023 12:37:15 08/09/2008/09/2023 CBC MCV 87.4 fL 79.0-9 2.2 Not Available [address], [address], 08/09/2023 12:37:15 08/09/2008/09/2023 CBC MCH 28.3 pg 25.7-3 2.2 Not Available [address], [address], 08/09/2023 12:37:15 08/09/20 23 08/09/2023 CBC MCHC 32.4 g/dL 32.3-3 6.5 Not Available [address], [address], 08/09/2023 12:37:15 08/09/20 23 08/09/2023 CBC plt 243 K/? ? ?L 163-33 7 Not Available [address], [address], 08/09/2023 12:37:15 08/09/20 23 08/09/2023 CBC MPV 10.6 fL 9.4-12 .4 Not Available [address], [address], 08/09/2023 12:37:15 08/09/20 23 08/09/2023 CBC neut% 47.1 % 34.0-6 7.9 Not Available [address], [address], 08/09/2023 12:37:15 08/09/20 23 08/09/2023 CBC neut# 2.88 1.78-5 .38 Not Available [address], [address], 08/09/2023 12:37:15 08/09/20 23 08/09/2023 CBC lymph % 40.7 % 21.8-5 3.1 Not Available [address], [address], 08/09/2023 12:37:15 08/09/20 23 08/09/2023 CBC lymph # 2.48 K/? ? ?L 1.32-3 .57 Not Available [address], [address], 08/09/2023 12:37:15 08/09/20 23 08/09/2023 CBC mono% 9.5 % 5.3-12 .2 Not Available [address], [address], 08/09/2023 12:37:15 08/09/20 23 08/09/2023 CBC mono# 0.58 0.30-0 .82 Not Available [address], [address], 08/09/2023 12:37:15 08/09/20 23 08/09/2023 CBC eo% 1.3 % 0.8-7. 0 Not Available [address], [address], 08/09/2023 12:37:15 08/09/20 23 08/09/2023 CBC eo# 0.08 0.04-0 .54 Not Available [address], [address], 08/09/2023 12:37:15 08/09/20 23 08/09/2023 CBC baso% 0.7 % 0.2-1. 2 Not Available [address], [address], 08/09/2023 12:37:15 08/09/20 23 08/09/2023 CBC baso# 0.04 0.00-0 .08 Not Available [address], [address], 08/09/2023 12:37:15 08/09/20 23 08/09/2023 CBC RDW-CV 12.9 % 11.6-1 4.4 Not Available [address], [address], 08/09/2023 12:37:15 08/09/20 23 08/09/2023 CBC Ig% 0.700 % 0.000- 1.500 Ig % >0.5 Indic ates possi ble Left Shift Not Available [address], [address], 08/09/2023 12:37:15 08/09/20 23 08/09/2023 CBC Ig# 0.040 0.000- 0.093 Not Available [address], [address], 08/09/2023 12:37:15 08/09/20 23 08/09/2023 CBC NRBC% 0.0 % 0.0-0. 2 Not Available [address], [address], 08/09/2023 12:37:15 08/09/20 23 08/09/2023 CBC NRBC# 0.000 0.000- 0.012 Not Available [address], [address], 08/09/2023 12:37:15 08/09/20 23 08/10/2023 C-GROVER CTIVE PROTE IN (RCRP ) C-reactive protein (rcrp) 2.1 mg/dL 0.5-9. 0 Not Available [address], [address], 08/10/2023 15:49:06 08/09/20 23 08/10/2023 SED RATE BY MODIF IED WESTE RGREN sed rate by modified westergren TNP mm/h TEST NOT PERFO RMED Due to a proce ssing error at [email or web address], we are unabl e to perfo rm this test. The speci men was not proce ssed in time to meet the testi ng sched ule and has/w ill excee d stabi lity by the next sched uled run. Not Available [facility] [address], [address], 08/10/2023 23:28:30 08/11/20 23 08/12/2023 SED RATE BY MODIF IED WESTE RGREN sed rate by modified westergren 6 mm/h < or = 20 normal Not Available [facility] [address], [address], 08/12/2023 04:58:06 09/11/20 23 09/11/2023 POC FLU flu A POC NEGATI VE Not Available [facility] [address] [place], [address], 09/11/2023 11:56:11 09/11/20 23 09/11/2023 POC FLU flu B POC NEGATI VE Not Available [facility] [address] [place], [address], 09/11/2023 11:56:11 09/11/20 23 09/11/2023 COVID 19 TESTI NG POC cov2 antigen NEGATI VE Not Available [facility] [address] [place], [address], 09/11/2023 11:58:11 01/15/20 24 01/15/2024 POC FLU flu A POC NEGATI VE Not Available [facility] [address] [place], [address], 01/15/2024 14:08:15 01/15/20 24 01/15/2024 POC FLU flu B POC NEGATI VE Not Available [facility] [address] [place], [address], 01/15/2024 14:08:15 09/11/20 23 09/11/2023 XR, chest [...] Readin g Physic danae: Rowena Arcos ms [email or web address] [facility]) [address] [place], [address], 09/25/2023 13:31:38 Result Notes None recorded. Problems Name Problem SNOMED Code Status Onset Date Resolution Date Notes Provider Name and Address Organization Details Recorded Time Impotence Active 2018 Not Available [facility] 1 00:19:41 Serum vitamin B12 below reference range 274988493 Active 2019 Not Available [facility] 1 00:19:41 Helicobact er pylori-ass ociated gastritis 567700190 Completed 202101/15/2024 2016, rx Dionne Alfaro . [address] [place] [address], [address] , [facility] 4 13:54:38 Backache 916927326 Active 2021 KENYA Mata [address] [place] [address], [address] , [facility] 2 16:35:40 Increased frequency of urination 974087441 Active 2021 KENYA Mata [address] [place] [address], [address] , [facility] 2 16:11:52 Open wound of finger 781350682 Completed 200508/21/2013 Not Available [facility] 3 02:03:23 Generalize d abdominal pain 320548852 Completed 200408/21/2013 Not Available [facility] 3 02:02:06 Common cold 66312673 Completed 200408/21/2013 Not Available [facility] 3 02:00:28 Streptococ linsey sore throat 96720116 Completed 200408/21/2013 Not Available [facility] 3 02:02:02 Problem Notes None recorded. Procedures Surgical History Date Name Laterality Status Provider Name and Address Organization Details Recorded Time 2020 [place] - EGD completed Ashok Arreola MD [address] [place], [place] [address], [address], [facility] 1 08:32:01 2020 Refraction completed Malorie Link [facility] 1 12:22:43 2020 [place] - EGD completed Ashok Arreola MD [address] [place], [place] [address], [address], [facility] 1 10:13:28 2019 Budhradolores - EGD completed Ashok Arreola MD [address] [place] [address] [place], [address], [facility] 0 09:40:56 2019 prevention-cardiovascular risk reduction counseling cancelled Billie Washington [facility] 0 09:42:41 2019 prevention-annual alcohol misuse screening cancelled Billie Washington [facility] 0 09:42:41 2018 esophagogastroduodenoscopy completed Dina Burciaga MD [address] [place] [address] [place], [address], [facility] 2 16:26:09 2018 Colonoscopy completed Tammy Burciaga MD [address] [place], [place] [address], [address], [facility] 2 16:23:37 2018 Refraction completed Johanna Kenny, RICCI [address] [place], [place] [address], [address], [facility] 9 09:28:23 2018 Appendectomy completed Tammy Burciaga MD [address] [place], [place] [address], [address], [facility] 2 16:19:22 Imaging Results Imaging Date Name Status LastModified by Organiz ation Details LastModified Time 09/11/2023 XR, chest completed [email or web address] [facility]) [address], [place], [address], 09/25/2023 13:31:38 Procedure Notes None recorded. Medical Equipment None Reported. Allergies Allergen ID Allergen Name Allergen Category Reaction Reaction Severity Criticality Documentation Date Start Date Code Code System Note Provider Name and Address Organization Details Recorded Time 21060402 Imodium medicatio n Not available Not available Not available 12/13/2018 70491 9 RxNorm chest pain QUANG Victor null, [facility] 9 15:34:59 Medications Name Sig Start Date [...] e 50 mcg/actua tion nasal spray,mylene pension [place] 2 sprays twice a day by intranas [...] Updated DateTime 3 162.56 cm 30.4 kg/m2 57789.8 5 g 74 /min 98.3 [degF] 112 mm[Hg] 72 mm[Hg] Maria Victoria Medrano [facility] 3 14:37:59 Date Recorded Body height Body mass index (BMI) Body weight Heart rate Oxygen saturation Oxygen saturation in Arterial blood by Pulse oximetry Body temperature Systolic blood pressure Diastolic blood pressure Provider Name and Address Organization Details Last Updated DateTime 3 162.56 cm 30.6 kg/m2 16562.4 4 g 91 /min 98 % 98 % 98.6 [degF] 110 mm[Hg] 80 mm[Hg] QUANG Foreman [facility] 3 11:33:36 Date Recorded Body height Body mass index (BMI) Body weight Body temperature Oxygen saturation Oxygen saturation in Arterial blood by Pulse oximetry Heart rate Systolic blood pressure Diastolic blood pressure Provider Name and Address Organization Details Last Updated DateTime 4 162.56 cm 32.1 kg/m2 49058.7 7 g 98.6 [degF] 99 % 99 % 85 /min 120 mm[Hg] 90 mm[Hg] QUANG Foreman [facility] 4 13:48:08 Date Recorded Body height Provider Name an d Address Organization Details Last Updated DateTime 04/17/2024 162.56 cm QUANG Victor [place] [facility] 04/17/2024 09:54:44 Date Recorded Systolic blood pressure Diastolic blood pressure Provider Name and Address Organization Details Last Updated DateTime 04/17/2024 108 mm[Hg] 85 mm[Hg] Tammy Gomez, [employer] [address] [place] [address], [phone], [facility] 04/17/2024 10:09:12 Date Recorded Body height Body mass index (BMI) Body weight Oxygen saturation Oxygen saturation in Arterial blood by Pulse oximetry Heart rate Systolic blood pressure Diastolic blood pressure Provider Name and Address Organization Details Last Updated DateTime 162.56 cm 31.4 kg/m2 54835.4 g 97 % 97 % 81 /min 96 mm[Hg] 70 mm[Hg] QUANG Victor [facility] 09:10:44 Social History Question Answer Notes LastModified by Organizat ion Details LastModified Time Tobacco Smoking Status Never Smoker [facility] 06/13/2022 15:45:01 What Is Your Level Of Alcohol Consumption? None [email or web address] Information not available 06/13/2022 What Is Your Level Of Caffeine Consumption? Moderate Information not available 06/25/2014 How Much Tobacco Do You Chew? None [email or web address] Information not available 11/04/2016 What Type Of Diet Are You Following? REGULAR Information not available 06/25/2014 Do You Or Have You Ever Used E-cigarettes Or Vape? 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 No Information not available 06/25/2014 Live Alone Or With Others? With Others Information not available 06/25/2014 Marital Status Informatio n not available 06/25/2014 What Was The Date Of Your Most Recent Tobacco Screening? 01/15/2024 [email or web address] Information not available 01/15/2024 How Many Children Do You Have? 3 Information not available 06/25/2014 Smoke Alarm In Home Yes Information not available 06/25/2014 Do You Or Have You Ever Used Smokeless Tobacco? Never Used Smokeless Tobacco [email or web address] Information not available 08/27/2019 How Much Tobacco Do You Smoke? No [email or web address] Information not available 08/27/2019 How Many Years Have You Smoked Tobacco? 0 [email or web address] Information not available 08/27/2019 Sex: Male Functional Status None recorded. Mental Status None recorded. Family History Nothing Reported Notes:M and F alive M with c irrhosis unk to pt. Medical History No medical history recorded. Immunizations Vaccine Type Date Status Note Provider Nam e and Address Organization Details Recorded Time Td(adult) unspecified formulation 6 completed Not Available [facility] 06/28/2021 00:19:41 influenza, seasonal, intradermal, preservative free 4 completed Not Available [facility] 10/19/2019 02:31:51 Influenza, split virus, quadrivalent, PF 9 completed Not Available [facility] 10/19/2019 02:24:03 Influenza, split virus, quadrivalent, PF 1 completed Hannah Carmichael LPN null, [facility] 11/18/2020 15:40:13 Tdap 1 completed Hannah Carmichael LPN null, [facility] 11/18/2020 15:40:13 COVID-19, mRNA, LNP-S, PF, 30 mcg/0.3 mL dose 1 completed Nilmari, RMA Damico null, [facility] 10/24/2023 08:24:51 COVID-19, mRNA, LNP-S, PF, 30 mcg/0.3 mL dose 1 completed Nilmari, RMA Damico null, [facility] 10/24/2023 08:24:58 COVID-19, mRNA, LNP-S, bivalent, PF, 30 mcg/0.3 mL dose 2 completed Nilmari, RMA Damico null, [facility] 10/24/2023 08:25:12 Past Encounters Encounter ID Performer Location Encounter Start Date Encounter Closed Date Diagnosis/Indication Diagnosis SNOMED-CT Code Diagnosis ICD10 Code Diagnosis Note [id number] [facility], OFFICE [address] [place] [address] 10/25/2004 10:17:02 10/26/2004 12:44:07 [id number] [facility] [place] [address] [place] [address] [place] [address] 03/04/2005 09:17:46 03/07/2005 10:01:21 [id number] [facility] [place] [address] [place] [address] [place] [id number] 08/01/2005 14:16:08 08/01/2005 16:41:40 [id number] [facility] OFF[facility] [address] [place] [address] 06/22/2006 13:30:59 06/22/2006 16:44:28 [id number] [facility] [place] [address] [place] [address] 06/26/2006 08:58:39 06/26/2006 12:20:41 [id number] [facility] [place] [address] [place] [address] [place] [address] 07/03/2006 09:17:35 07/03/2006 13:25:30 [id number] Anne Galvez [facility] [place] [address] [place] [id number] 06/25/2014 09:05:14 06/25/2014 10:02:28 Viral syndrome 521161963 appears resolving await tic borne panel drawn at [facility] myalgias, fatigue through convalesce nce discussed. General ex amination of patient 212580179 we discussed prevention and screening and occupation al exposures at [facility] NSAID-asso ciated gastropathy 40235939 due to need for nsaid analgesia while acutely ill Mass of skin 289224517 2 mm tender SQ nodule along right lower costal margin is very bothersome to patient reports is is painful even when not touched wishes eval for removal [id number] [facility] [place] [address] [place] [address] 06/30/2014 07:40:49 06/30/2014 09:08:29 Viral syndrome 466282738 resolving clinically is getting more energetic prior- appears resolving await tic borne panel drawn at [facility] myalgias, fatigue through convalesce nce discussed. NSAID-asso ciated gastropathy 96634344 due to need for nsaid analgesia while acutely ill PPI as needed Mass of skin 252922564 r eminded to call surgery prior=2mm tender SQ nodule along right lower costal margin is very bothersome to patient reports is is painful even when not touched wishes eval for removal Inflammato ry disease of liver 692193391 new [facility]- reports was told to stop binge drinking hard liquor in 2002 after having what appears to have been an [place] in [place]. At the time weekend 5-6 shots once [...] workup is unrevealin g. Influenza vaccine needed 1635244419 [id number] Sylvia Galvan , [facility] [place] [address] [place] [address] 02/15/2016 16:11:51 02/15/2016 17:09:35 Left sided abdominal pain 446601677 R10.9 progressiv e past month, now constant, keeps him up HS will begin with abd xray and \f/u as indicated may need CT Low back pain 088587914 M54.5 comes and goes lasts a week recommende d ibuprofen or naproxen for benigh lumbago. [id number] Dwain Lagunas MD , [facility] [place] [address] [place] [address] 03/18/2016 15:49:38 03/18/2016 16:37:49 Left sided abdominal pain 499404424 R10.9 progressiv e past month, now constant, keeps him up HS CT abdomen proved negative.n o postprandi al pain.PMH had EGD, age 27 diagnosed with gastric erosion. felt alcoholic . p/w post prandial diarrhea, clear emesis. when young would drink on weekends, none (occ beer)since about age 29. will treat empiricall y for gastritis, labs as well [id number] Dwain Lagunas MD , [facility] [place] [address] [place] [address] 03/30/2016 16:22:14 03/30/2016 16:51:16 Left sided abdominal pain 425525477 R10.9 has eased with cutting coffee to [...] well Helicobact er pylori gastrointestinal tract infection 023256891 B96.81 . We will eradicate it with the antibiotic packet I just sent to your pharmacy. It is the packet of antibiotic s we had discussed. While you are taking these pills, you may hold the omeprazole antacid that I had already given you , and restart it when you complete the packet, until the omeprazole tablets run out. [id number] Dwain Lagunas MD , [facility] [place] [address] [place] [address] 11/04/2016 16:57:15 11/04/2016 17:39:32 Left sided abdominal pain 797096399 R10.9 resolved. has eased with cutting coffee [...] well Helicobact er pylori gastrointestinal tract infection 936611414 B96.81 non specific and atypical LUQ pains have resolved'p t nervous and having general anxieties related to fears of GI illness, asking for EGD. Reasonable request will refer [facility]. 03/2016. We will eradicate it with the antibiotic packet I just sent to your pharmacy. It is the packet of antibiotic s we had discussed. While you are taking these pills, you may hold the omeprazole antacid that I had already given you , and restart it when you complete the packet, until the omeprazole tablets run out. [id number] Dwain Lagunas MD , [facility] [place] [address] [place] [address] 04/25/2018 15:50:55 04/25/2018 16:46:45 Cervical radiculopathy 69564910 M54.12 + self described spurlingsd emonstrate s it in the officeradi ates to right first 3 digitsrigh t [id number] with posterior neck pain and this electric shooting pain when rotates head to right abby in extension Plantar fa sciitis of left foot 4304989721 9819381 M72.2 dx and treatments discussed [id number] Rosalee Parisi.OChelsy , [facility] [place] [address] [place] [address] 12/13/2018 15:25:06 12/13/2018 16:04:24 Right upper quadrant pain 713720077 R10.11 suspect gastritis or GB/stonead vised low fat diet- mostly fluid on prev CT scan 2015 - did have small rigth kidney stonecurre ntly able to eat and drink well [id number] Dwain Lagunas MD , [facility] [place] [address] [place] [address] 04/22/2019 13:35:33 04/22/2019 15:41:42 Meibomian gland dysfunction 651209326 H02.881 Right upper lidDx discussedp t reassurred , this is spontaneou s, and if an infection this treatment will clear it up.if it persists then this will have presented itself as a chalazion or cyst which may persist for many weeks. Warm compresses as much as possible [id number] Dwain Lagunas MD , [facility] [place] [address] [place] [address] 06/12/2019 10:54:40 06/12/2019 11:40:40 Impotence 651157026 N52.9 Can initiate erection but difficulty maintainin [...] palpitatio ns, SOBF/u in 1 month Dizziness 841560390 R42 Worse in the morning and with position changes - likely positional vertigoOff ered prn meclizine and PT for Elisha maneuvers- pt declines for nowCheck CBC and CMP today r/o other etiologies Will f/u in 1 monthAdvis ed the patient to call with any new/worsen ing sx, i.e. blurred vision, worsening dizziness, chest pain, SOB [id number] Turkmen Ben Kenny, OD [facility], [facility] [place] [address] [place] [address] 06/14/2019 09:02:16 06/14/2019 10:45:28 Presbyopia 93121524 H52.4 Myopia 22334605 H52.13 [id number] KENYA Rizzo FP, [facility] [place] [address] [place] [id number] 07/18/2019 14:04:49 07/18/2019 14:45:32 Megaloblastic anemia due to vitamin B>12< deficiency 52929196 D53.1 Vitamin B12 deficiency noted on 06/13/2019 Advised continue to take supplement s and will recheck in another 5 months.GI referral placed ? needs endoscopy - per patient. Left lower quadrant pain 932653761 R10.32 Benign exam today. Reports intermitte nt pinching feeling left lower quadrant. No red flags.CT abdomen 01/07/19 showed significan t improvemen ts s/p appendecto my, otherwise benign.Lip ase normal 01/07/19, LFTs stable 06/12/19, C diff negative 12/19/18Hi story of ETOH abuse, vitamin B12 noted after last OV, started on vitamin [id number] requesting GI consult, ? endoscopy, although unable to locate where in previous notes another provider had mentioned this - referral placedPati ent to follow-up in 1 one monthAdvis ed to follow-up sooner if develops any new/worsen ing symptoms Impotence 948898796 N52. 9 Can initiate erection but difficulty [...] in 1 month Active or passive immunization [id number] Z23 Flu shot given today. [id number] KENYA Rizzo , [facility] [place] [address] [place] [address] 08/27/2019 09:01:07 08/27/2019 09:41:48 Left lower quadrant pain [id number] R10.32 Continues to follow with GI, will [...] tic anemia due to vitamin B>12< deficiency [id number] D53.1 Patient continuing to follow with GI. Stopped taking vitamin B12 supplement s due to nausea. Advised to continue to discuss with GI, may be an underlying malabsorpt ion component. Endoscopy/ colonoscop y in place for 09/13/19.F ollow-up with [facility] ARTHUR in 1 month. Impotence [id number] N52. 9 Viagra, Cialis not covered by insurance, never took medication s .States mostly resolved, no concerns.F ollow-up as needed. Grinding teeth 98048597 R46.89 Pt grinding teeth at night. Does not think stress related - declines IB consult at this time.Advis ed to follow-up with dentist for ongoing dental issues. Advised to trial a mouth guard at night.Foll ow-up with LEÓN GIBSON in 1 month. [id number] KENYA Rizzo , [facility] [place] [address] [place] [address] 09/17/2019 08:23:01 09/17/2019 12:17:35 Gastro-esophageal reflux disease with esophagitis [id number] K21.0 As above. Left lower quadrant pain 335559716 R10.32 Continues to follow with GI. Follow-up [...] develops any new/worsen ing symptoms Hiatal hernia 31737356 K 44.9 As above. [id number] Nica Shafer er, [employer] , [facility] [place] [address] [place] [address] 10/11/2019 15:01:34 10/14/2019 13:24:42 Gastritis 9586294 K29.70 Followed by MELI Israelx of H pylori Grade C esophagiti s per EGD Seen by GI on 10/07/19, advised omeprazole 20 mg BID prior to meals.Repe at EGD in 3 months Serum daphne min B12 below reference range [id number] R79.89 B12 229 on 06/13/19, with elevated [...] pt has gastritis. Pt not currently treated [facility] B12. Advised recheck labs in next month - cbc and b12. [id number] Nica Shafer er, [employer] TALA, [facility] [place] [address] [place] [address] 05/19/2020 08:12:55 05/20/2020 14:13:10 Pain in left foot [id number] 52820 M79.672 7+ weeks pain lateral plantar aspect of foot, and L lateral malleolus. Worse withdoris and plantar flexion. No trauma. Improves wtih massage. Likely plantar fasciitis, possible tendonitis . Advised ice, massage with ice water bottle, nsaids prncontinu e to wear supportive shoes with insertsref erred to podiatry as is not improving. [id number] Francois Camp DPM Podiatry, [address] [address] 05/25/2020 08:22:06 06/01/2020 12:45:56 Peroneal tendinitis of left lower limb [id number] 81454 M76.72 Plantar fasciitis 807872 003 M72.2 [id number] Katie Villar RN [facility], [address] [address] 09/03/2020 07:31:17 09/03/2020 12:46:58 [id number] Maria Fernanda Pérez , [facility] [place] [address] [place], [place] [address], [place] [address] 11/18/2020 07:55:49 11/20/2020 16:46:33 Pain in upper limb 856133800 M79.602 Pain for three weeks left shoulder [...] pain. Gastro-eso phageal reflux disease with esophagitis 061986707 K21.00 Saw GI yesterday. Plans to do colonoscop y and repeat endoscopy. Esophagiti s on upper endoscopy in September 2020. Now on famotidine 20 mg daily at bedtime. Off omeprazole . Immunization due 5191892 08 Z28.3 Will arrange for tetanus and flu vaccines with nursing. Primary er ectile dysfunction [id number] N52.9 Never took Viagra, insurance didn't cover. No recent issues. Consider urology referral in the future if needed. Hyperpigme ntation of skin 42487049 L81.9 Darkened areas of skin around his eyes for 3 months. He thinks related to omeprazole use, but hasn't improved since stopping. Trial topical retinoid once daily at bedtime and follow-up again in 3-4 weeks to re-evaluat e. [id number] Hannah Carmichael LPN , [facility] [place] [address] [place] [address] 11/18/2020 15:21:31 11/20/2020 16:45:50 Active or passive immunization 292881452 Z23 Flu shot given today. [id number] Michelet Boykin MD Sports Medicine, [address] [address] 11/26/2020 12:29:43 11/27/2020 17:01:09 Shoulder pain 40342898 M25.512 Kedar is a 50-year-ol d male [...] time and date for this appointmen t. [id number] Michelet Boykin MD Sports Medicine, [address] [address] 12/03/2020 16:38:50 12/16/2020 09:34:24 Shoulder pain 52280030 M25.512 Kedar is a 50-year-ol d male [...] me only as needed for further care. [id number] Katie Villar RN [facility], [address] [address] 02/08/2021 08:37:40 02/08/2021 12:28:35 [id number] Johanna Kenny, OD [facility], [address] [address] 05/07/2021 14:42:44 05/14/2021 16:40:41 Myopia 22804098 H52.13 Presbyopia 04020985 H52. 4 [id number] Debbie Parrish RN [facility], [address] [address] 05/17/2021 07:24:37 05/17/2021 13:34:38 [id number] Nica Shafer er, NET MA[employer] , [facility] [place] [address] [place] [address] 05/16/2022 15:17:12 05/19/2022 09:39:16 COVID-19 [id number] U07.1 Tested positive 05/14/22Sym ptoms started , [...] care.Revie wed CDC isolation recommenda tions Gastritis 9342126 K29.[address] Pulido, [facility] of H pylori Grade C esophagiti s per EGD Seen by GI on 10/07/19, advised omeprazole 20 mg BID prior to meals. avoid nsaidscont inue esomeprazo le and famotidine [id number] , [facility] [place] [address] [place] [address] 06/03/2022 15:07:39 06/27/2022 12:51:21 Backache 373840316 M54.9 POC UA result discussed with patient. [...] or unable to keep fluids down Dysuria 39482942 R30.9 [id number] Dwain Lagunas MD , [facility] [place] [address] [place] [address] 06/13/2022 15:37:58 06/29/2022 13:20:44 Increased frequency of urination 770808866 R35.0 Pt understand s to increase fluid intake up at least 2L per day. Pt understand s to avoid drinking excessive coffee or any caffeinate d beverage because dehydratio n may aggravate the discomfort .Pt will return to clinic for worsening symptoms.P SA ordered to rule out any prostate disorder.O rder for urology referral submitted Backache 623689539 M54.9 Pt understand s this diffused back pain with less intensity might have been caused by kidney stone that might have been excreted before CT scan performed. Pt will take OTC acetaminop hen 325 mg two tabs every 6 hours as needed for pain management . [id number] Dwain Lagunas MD , [facility] [place] [address] [place] [address] 06/21/2022 08:19:03 06/21/2022 08:52:42 Increased frequency of urination 179255504 R35.0 LBP resolved followingc t negative in [facility] - perhaps was a past stoneER prescribbe d azocontinu es with frequent voidshe is concerned is covid related will image bladdre Myalgia/my ositis - multiple 582189272 M79.10 left hand locks, low back as wellmassag es for reliefis triggerred by use- eg after lifting when i use my muscles co nt tylenol [id number] DECEMBER MARSHALL SMITH DNP , [facility] [place] [address] [place] [address] 09/19/2022 16:43:59 09/20/2022 09:55:04 Nausea and vomiting 28194246 R11.2 zofran as needed, reviewed R/B/A Diarrhea 74391988 R19.7 BRAT diet, push fluids--RT O within 24 hours for persistant or worsening diarrhea Viral gastroenteritis 11 3367237 A08.4 suspect symptoms related to viral gastroente ritis since several sick contacts and other family members with similar symptoms-- discussed supportive care rest, push fluids, BRAT diet, APAP as needed for neck pain--RTO within 24 hours for worsening symptoms or 2-3 days if no improvemen t for further evaluation [id number] Leo Banegas MD , [facility] [place] [address] [place] [address] 08/08/2023 14:32:40 08/08/2023 15:30:19 Acute bronchitis 00367673 J20.9 [id number] Dionne Alfaro . , [facility] [place] [address] [place] [address] 09/11/2023 11:17:21 09/11/2023 17:17:46 Upper respiratory infection 14800287 J06.9 Patient presents with symptoms consistent with [...] unless evidence of pneumonia on CXR. Cough 83165457 R05.1 will check Xray and give benzonatat e for cough. [id number] Dionne EDGAR, [facility] [place] [address] [place] [address] 01/15/2024 13:36:08 01/15/2024 15:19:54 Cough 01964909 R05.9 Patient presents with cough. flu A and B negative.L ikely secondary to: viral URI.Discus sed supportive measures.F ollow up if not improving or with worsening symptoms. [id number] LEÓN Patel, [facility] [place] [address] [place] [address] 04/17/2024 09:38:36 04/18/2024 08:24:41 COVID-19 097495994 U07.1 tested + yesterday, sxs x 3 dayssxs starting to improvedis cussed paxlovid- pt not interested will c/w fluids, rest, APAP/NSAID s prnf/u prn [id number] LEÓN Patel, [facility] [place] [address] [place] [address] 09/03/2024 09:00:41 09/03/2024 09:41:24 Cough 23365865 R05.9 Patient presents with cough.Like ly secondary [...] Kim Member ID Guarantor Name 08/08/2023 1 [facility] - DIRECT CONNECTORCARE TYPE I (HMO) [id number] Kedar A James [id number] 1 Kedar Ramirez 09/11/2023 1 [facility] [employer] TYPE I (HMO) [id number] Kedar A James [id number] 1 Kedar James 01/15/2024 1 [facility] [employer] TYPE I (HMO) [id number] Kedar A James [id number] 1 Kedar James 04/17/2024 1 [facility] [employer] TYPE I (HMO) [id number] Kedar A James [id number] 1 Kedar Ramirez 09/03/2024 1 [facility] - [employer] TYPE I (HMO) [id number] Kedar A James [id number] 1 Kedar Ramirez Notes Date Note Type [...] the past caused urinary retention. Dionne Alfaro. [address] [place] [address], [phone], [facility] 09/11/2023 12:04:53 01/15/2024 text/html Patient presents to [...] feels like something crawling there. Dionne Alfaro. [address] [place] [address], [phone], [facility] 01/15/2024 14:15:55 04/17/2024 text/html 8 minutes.vv-videosx s started 3 days- sore throat, fever in am, body aches, diarrhea, coughno sobtested + covid yesterday.sleep is ok- weird dreamshad covid last 2021feeling a bit better- diarrhea is better, no sob, more energy Tammy Gomez NP [address] [place] [address], [phone], [facility] 04/17/2024 10:10:35 09/03/2024 text/html sick x 2 weeksstarted with diarrhea, body aches, chillsthen developed sinus congestion, coughotc nightquill and day quiljust dry cough, worse with laying downafebrile Tammy Gomez NP [address] [place] [address], [place], [address], [facility] 09/03/2024 09:26:20
== END 2024-12-02 16:11 | disposition home or self-care (01) ==
PROVIDERS: PCP Internal Medicine; Visit Provider Internal Medicine Cardiovascular Disease
DX: E78.00 Pure hypercholesterolemia, unspecified (principal); R94.31 Abnormal electrocardiogram [ECG] [EKG]
CPT/HCPCS: 93010; 99214

== ENCOUNTER → 2024-12-02 15:47 | Outpatient (BNVA) | payer OTHER, SELFPAY | PROVIDERS: PCP Internal Medicine; Visit Provider Internal Medicine Cardiovascular Disease | DX: R94.31 Abnormal electrocardiogram [ECG] [EKG] (principal); E78.00 Pure hypercholesterolemia, unspecified | CPT/HCPCS: 93005; 99212 ==